=== PATIENT | female | born 1945 | race Caucasian/White ===

== ENCOUNTER 2017-08-10 14:37 | Inpatient (IN) ==
[2017-08-10] MEDS ORDERED: Ondansetron 4 MG/2 ML VIAL IVP PRN (15:52)
[2017-08-10] MEDS ORDERED: Naloxone 0.4 MG/ML INJ IVP PRN (15:52)
[2017-08-10] MEDS ORDERED: Ipratropium/Albuterol Neb 3 ML IH PRN (15:56)
[2017-08-10] MEDS ORDERED: Acetaminophen IV 1,000 MG/100 ML INFUS..BTL IVPB PRN (15:56)
[2017-08-10] MEDS ORDERED: Dextrose Gel 15 GM PO PRN ×2 (15:58)
[2017-08-10] MEDS ORDERED: *HR* Dextrose 50 % in Water (Syg) 50 ML SYRINGE IVP PRN (15:58)
[2017-08-10] MEDS ORDERED: D5% in Water 1,000 ML IVC PRN (15:58)
--- NOTE | 2017-08-10 16:23 | General Surg History&Physical ---
Date of Encounter: 08/10/17 Time of Encounter: 16:20 Assessment and Plan (1) Rectal prolapse Current Visit: No Status: Acute The assessment and plan as outlined above was discussed with the patient and/or family members who expressed understanding and agreement. All questions were answered. (2) COPD (chronic obstructive pulmonary disease) Current Visit: Yes Status: Chronic The assessment and plan as outlined above was discussed with the patient and/or family members who expressed understanding and agreement. All questions were answered. Qualifiers: COPD type: unspecified COPD Qualified Code(s): J44.9 - Chronic obstructive pulmonary disease, unspecified (3) Rheumatoid arthritis Current Visit: Yes Status: Chronic The assessment and plan as outlined above was discussed with the patient and/or family members who expressed understanding and agreement. All questions were answered. Qualifiers: Rheumatoid arthritis location: multiple sites Rheumatoid factor presence: unspecified presence Qualified Code(s): M06.9 - Rheumatoid arthritis, unspecified (4) Crohn's disease Current Visit: Yes Status: Chronic The assessment and plan as outlined above was discussed with the patient and/or family members who expressed understanding and agreement. All questions were answered. Qualifiers: Gastrointestinal tract location: unspecified location Digestive disease complication type: without complication Qualified Code(s): K50.90 - Crohn's disease, unspecified, without complications (5) DVT prophylaxis Current Visit: Yes Status: Acute The assessment and plan as outlined above was discussed with the patient and/or family members who expressed understanding and agreement. All questions were answered. History of Present Illness Chief complaint: Rectal prolapse HPI: Ms. Lemos is a 72 year old female who was seen in the outpatient surgical office for rectal prolapse. A complete history and physical has been completed in [facility]. A copy of history and physical has been placed in the patient's chart at the nurse's station as well as in the medical records folder to be scanned into the patient's chart. Past Med Surg Social Fam HX - Past Medical History Medical history: CHF, COPD, diabetes, RA, thyroid disease, other Psychiatric history: no psych history - Social History Smoking Status: Former smoker Smokeless Tobacco Status: No Alcohol use: none Drug use: none Medications and Allergies 3 Allergy/AdvReac Type Severity Reaction Status Date / Time gabapentin [From Neurontin] AdvReac Headache Verified 08/09/17 17:24 Penicillins AdvReac Vomiting Verified 08/09/17 17:24 Review of Systems All systems PM: A 10-system review of systems was performed and is negative for pertinent findings except as documented above in the HPI. General Surgery Exam Initial Vital Signs Temp Pulse Resp BP Pulse Ox 97.4 F L 70 15 99/65 93 08/10/17 15:52 08/10/17 15:52 08/10/17 15:52 08/10/17 15:52 08/10/17 15:52 Results - Labs All other labs normal.
[2017-08-10] MEDS: *HR* HYDROmorphone (PF) 1 MG/ML SYRINGE IVP PRN ×2 (16:35→21:51)
[2017-08-10] MEDS: 0.9 % Sodium Chloride 1,000 ML IVC SCH (16:35)
[2017-08-10 16:53] LABS: Basophils % 0.5 %; Eosinophils # 0.1 K/mcL (0.0-0.6); Eosinophils % 1.5 %; Hematocrit 37.7 % (35.3-44.9); Hemoglobin 12.1 g/dL (11.5-15.4); Immature Granulocytes % 0.1 % (0-4); Lymphocytes # 2.4 K/mcL (0.6-4.6); Lymphocytes % 29.9 %; Mean Corpuscular HGB Conc 32.1 g/dL (31.6-35.5); Mean Corpuscular Hemoglobin 31.9 pg (28.0-33.3); Mean Corpuscular Volume 99.5 fL (83.0-100.0); Mean Platelet Volume 11.5 fL (9.4-12.4); Monocytes # 0.5 K/mcL (0.0-1.3); Monocytes % 6.4 %; Platelet Count 217 K/mcL (140-400); Red Blood Count 3.79 M/mcL (3.82-4.97); Red Cell Distribution Width 13.6 % (11.5-14.5); Segmented Neutrophils % 61.6 %
[2017-08-10 16:58] LABS: INR 1.2; Prothrombin Time 12.6 Seconds (9.4-12.1)
[2017-08-10 17:08] LABS: Alanine Aminotransferase 16 Units/L (0-55); Albumin 3.6 g/dL (3.5-5.0); Albumin/Globulin Ratio 0.8 (1.1-2.2); Alkaline Phosphatase 90 Units/L (38-126); Aspartate Amino Transferase 24 Units/L (5-34); BUN/Creatinine Ratio 14 (6-26); Bilirubin,Total 0.5 mg/dL (0.2-1.2); Blood Urea Nitrogen 11 mg/dL (7-20); Calcium 9.6 mg/dL (8.6-10.8); Carbon Dioxide 29 mEq/L (19-29); Chloride 101 mEq/L (98-109); Globulin 4.3 g/dL (2.4-3.5); Glucose 108 mg/dL (70-99); Osmolality,Calculated 290 (280-300); Potassium 3.5 mEq/L (3.5-4.5); Sodium 140 mEq/L (136-145); Total Protein 7.9 g/dL (6.0-8.3); eGFR For African Americans > 60 (> 60); eGFR For Non-African Americans > 60 (> 60)
[2017-08-10] MEDS: Insulin LISPRO 300 UNITS/3 ML VIAL SQ SCH (17:22)
[2017-08-10] MEDS: *HR* LORazepam 2 MG/ML VIAL IVP PRN (18:29)
[2017-08-11] MEDS: Insulin LISPRO 300 UNITS/3 ML VIAL SQ SCH ×4 (01:19→21:12)
[2017-08-11] MEDS: 0.9 % Sodium Chloride 1,000 ML IVC SCH ×2 (06:08→21:12)
[2017-08-11] MEDS: *HR* HYDROmorphone (PF) 1 MG/ML SYRINGE IVP PRN ×4 (06:10→23:12)
[2017-08-11] MEDS: *HR* LORazepam 2 MG/ML VIAL IVP PRN (07:53)
[2017-08-11] MEDS ORDERED: Levothyroxine Sodium 100 MCG VIAL IVP SCH (09:00)
[2017-08-11] MEDS ORDERED: Pantoprazole 40 MG VIAL IVP SCH (09:00)
--- NOTE | 2017-08-11 12:20 | General Surgery Progress Note ---
Date of Encounter: 08/11/17 Time of Encounter: 10:30 - Assessment and Plan (1) Rectal prolapse Current Visit: No Status: Acute Plan for Robotic assisted LAR with Dr. Velasquez today NPO IV fluids Supportive care and pain control IS every 1 hour while awake PPI therapy daily am labs (2) COPD (chronic obstructive pulmonary disease) Current Visit: Yes Status: Chronic no acute exacerbation duonebs every 6 hours prn IS every 1 hour while awake Supplemental oxygen at night 2L per nasal cannula Qualifiers: COPD type: unspecified COPD Qualified Code(s): J44.9 - Chronic obstructive pulmonary disease, unspecified (3) Rheumatoid arthritis Current Visit: Yes Status: Chronic Qualifiers: Rheumatoid arthritis location: multiple sites Rheumatoid factor presence: unspecified presence Qualified Code(s): M06.9 - Rheumatoid arthritis, unspecified (4) Crohn's disease Current Visit: Yes Status: Chronic Qualifiers: Gastrointestinal tract location: unspecified location Digestive disease complication type: without complication Qualified Code(s): K50.90 - Crohn's disease, unspecified, without complications (5) DVT prophylaxis Current Visit: Yes Status: Acute EPCDs to bilateral lower extremities for DVT prophylaxis Ambulate hallways TID with assistance Subjective Patient reports: no new complaints, still having pain, flatus, bowel movement, afebrile, other (Unable to void last evening and cueto catheter placed) Objective Vital Signs - Last 8 Hours Temp Pulse Resp BP Pulse Ox 08/11/17 11:21 98.7 F 81 16 123/68 97 08/11/17 07:06 98.1 F 91 14 114/73 91 08/11/17 05:44 98.4 F 98 14 103/72 94 Intake and Output 08/10/17 08/11/17 08/11/17 23:59 07:59 15:59 Intake Total 0 / 0 950 / 950 Output Total 1100 / 1100 400 / 400 Balance -1100 / -1100 550 / 550 Intake: IV Fluids 950 / 950 0.9 % Sodium Chloride 1,000 ML 950 / 950 @ 75 mls/hr IVC .[id number] [facility] Rx #:[id number] Oral 0 / 0 0 / 0 Output: Urine 550 / 550 Urethral (Cueto) 550 / 550 Catheter 550 / 550 400 / 400 Other: Meal NPO Stool Size Moderate Moderate Smear Stool Consistency liquid liquid liquid Stool Color Brown Green Yellow # Bowel Movements 1 # Bowel Movement Diapers 1 1 1 Weight 69.127 kg Blood Glucose* 96 108 105 Patient Weight 08/11/17 23:59 Weight 69.127 kg - General physical appearance well developed, well nourished, no distress - Eyes normal ocular movement - ENT normal mucosa, atraumatic, normocephalic - Neck Neck exam: trachea midline - Respiratory normal respiratory effort, clear to auscultation - Cardiovascular Cardiovascular exam: Present: RRR - Abdomen Abdomen: Present: bowel sounds present, soft, non tender - Genitourinary other (cueto catheter to SD with clear yellow urine noted) - Rectum other (Rectal prolapse reduced at this time) - Neurologic CN 2-12 grossly intact - Musculoskeletal other (moderate deconditioning ) - Psychiatric oriented to time, oriented to person, oriented to place, speech is normal, memory intact - Labs 08/10/17 16:20 08/10/17 16:20 Diabetes panel 08/10/17 Range/Units 16:20 Sodium 140 (136-145) mEq/L Potassium 3.5 (3.5-4.5) mEq/L Chloride 101 (98-109) mEq/L Carbon Dioxide 29 (19-29) mEq/L BUN 11 (7-20) mg/dL Creatinine 0.79 (0.57-1.11) mg/dL Glucose 108 H (70-99) mg/dL Calcium 9.6 (8.6-10.8) mg/dL AST 24 (5-34) Units/L ALT 16 (0-55) Units/L Alkaline Phosphatase 90 (38-126) Units/L Albumin 3.6 (3.5-5.0) g/dL Calcium panel 08/10/17 Range/Units 16:20 Calcium 9.6 (8.6-10.8) mg/dL Albumin 3.6 (3.5-5.0) g/dL Pituitary panel 08/10/17 Range/Units 16:20 Sodium 140 (136-145) mEq/L Potassium 3.5 (3.5-4.5) mEq/L Chloride 101 (98-109) mEq/L Carbon Dioxide 29 (19-29) mEq/L BUN 11 (7-20) mg/dL Creatinine 0.79 (0.57-1.11) mg/dL Glucose 108 H (70-99) mg/dL Calcium 9.6 (8.6-10.8) mg/dL Adrenal panel 08/10/17 Range/Units 16:20 Sodium 140 (136-145) mEq/L Potassium 3.5 (3.5-4.5) mEq/L Chloride 101 (98-109) mEq/L Carbon Dioxide 29 (19-29) mEq/L BUN 11 (7-20) mg/dL Creatinine 0.79 (0.57-1.11) mg/dL Glucose 108 H (70-99) mg/dL Calcium 9.6 (8.6-10.8) mg/dL Total Bilirubin 0.5 (0.2-1.2) mg/dL AST 24 (5-34) Units/L ALT 16 (0-55) Units/L Alkaline Phosphatase 90 (38-126) Units/L Albumin 3.6 (3.5-5.0) g/dL Consult Discharge Plan - Plan Referrals: NONE,PCP [Primary Care Provider] - Jose Luis Dunaway CNP [Family Provider] - - Attending Attestation For this encounter, I have reviewed the MECHANISM INSPECTOR or PA documentation, treatment plan, and medical decision making; and I have had face to face time with this patient.
--- NOTE | 2017-08-11 14:01 | Anesthesia Evaluation PreOp ---
<Ruby Esteves - Last Filed: 08/11/17 13:59> Date of Encounter: 08/11/17 - Past History Planned Operation: ascending colon resection for rectal prolapse Cardiac History: CHF (? no documentation found), HTN, Hyperlipidemia Pulmonary History: COPD TRUCK LEASING MANAGER History: Denies Any Significant HX Other Medical History: GERD, Other (rheumatoid arthritis) Anesthesia History: No Prior Anesthetic Complications, Past Anesthesia Alcohol Use: none Drug use: none Medications and Allergies ALPRAZolam [Xanax 1 MG Tablet] 1 mg PO BID 08/10/17 [History] Acetaminophen [Tylenol Arthritis] 650 mg PO Q8H PRN 08/10/17 [History] Alendronate Sodium [Alendronate Sodium] 70 mg PO QWEEK 08/10/17 [History] Duloxetine HCl [Cymbalta] 60 mg PO DAILY 08/10/17 [History] Ezetimibe [Ezetimibe] 10 mg PO DAILY 08/10/17 [History] Folic Acid 1 mg PO DAILY 08/10/17 [History] Furosemide [Lasix] 20 mg PO BID PRN 08/10/17 [History] GlipiZIDE XL (24 HR) [Glucotrol XL] 2.5 mg PO DAILY PRN 08/10/17 [History] Levothyroxine Sodium [Levothyroxine Sodium] 137 mcg PO QDPC 08/10/17 [History] Loratadine [Claritin] 10 mg PO DAILY 08/10/17 [History] Morphine Sulfate SR (12 HR) [MS Contin] 30 mg PO TID 08/10/17 [History] Omeprazole [PriLOSEC] 20 mg PO QDPC 08/10/17 [History] Oxycodone HCl [Oxycodone HCl] 0.5 tab PO BID 08/10/17 [History] Potassium Chloride [Potassium Chloride] 10 meq PO BID PRN 08/10/17 [History] Umeclidinium Elmo [Incruse Ellipta] 62.5 mcg IH DAILY 08/10/17 [History] 3 Allergy/AdvReac Type Severity Reaction Status Date / Time baclofen AdvReac Headache Verified 08/10/17 19:26 clonazepam AdvReac See Verified 08/10/17 19:26 Comments Cyclobenzaprine AdvReac Gastrointestinal Verified 08/10/17 19:26 [From Flexeril] Upset gabapentin [From Neurontin] AdvReac Headache Verified 08/10/17 19:26 ibuprofen [From Motrin] AdvReac Chest Pain Verified 08/10/17 19:26 meloxicam [From Mobic] AdvReac See Verified 08/10/17 19:26 Comments methocarbamol AdvReac Gastrointestinal Verified 08/10/17 19:26 Upset methotrexate AdvReac See Verified 08/10/17 19:26 Comments naproxen [From Naprosyn] AdvReac See Verified 08/10/17 19:26 Comments Penicillins AdvReac Vomiting Verified 08/10/17 19:26 pregabalin [From Lyrica] AdvReac Headache Verified 08/10/17 19:26 Sulindac AdvReac Gastrointestinal Verified 08/10/17 19:26 Upset Tizanidine [From Zanaflex] AdvReac Headache Verified 08/10/17 19:26 - Meds/Allergy Pre-op Review Medications Reviewed: Yes Allergies Reviewed: Yes Anesthesia Results - Labs 08/10/17 16:20 08/10/17 16:20 Anesthesia Exam Selected Entries 08/11/17 11:21 Temperature 98.7 F Pulse Rate 81 Respiratory Rate 16 Blood Pressure 123/68 O2 Sat by Pulse Oximetry 97 Weight: 69 kg NPO (# of Hours): over 8 hours <Minh Santiago - Last Filed: 08/11/17 14:56> Date of Encounter: 08/11/17 Time of Encounter: 14:54 - Past History Other Medical History: Other Anesthesia Results - Labs 08/10/17 16:20 08/10/17 16:20 Anesthesia Exam - HEENT Pupil (Motor): EOMI Mallampati: II Teeth: Edentulous Oral Opening: Greater than 3 - TRUCK LEASING MANAGER LOC: Oriented TRUCK LEASING MANAGER Motor: Normal RUE, Normal LUE, Normal RLE, Normal LLE, Normal Face TRUCK LEASING MANAGER Sensory: Normal: RUE, LUE, RLE, LLE, Face - Cardiac Rhythm: Regular Murmur: None - Pulmonary Breath Sounds: bilateral Clear Respiratory Effort: Symmetrical - Additional Findings very limited ROM of c-spine Anesthesia Assess/Plan ASA Score: 4 Modified Valentina Scale for Level of Consciousness: Cooperative, oriented, and tranquil Anesthetic Plan: General Monitoring Plan: Standard Monitors Recovery Plan: PACU (discussed risk of GA, agrees to proceed)
--- NOTE | 2017-08-11 14:20 | Event Note ---
Date of Encounter: 08/11/17 Time of Encounter: 14:00 Patient assessed and reviewed case with Dr. Velasquez. Will plan for Robotic assisted low anterior resection today with Dr. Velasquez for rectal prolapse. Consent complete. Cancel Air contrast barium enema.
[2017-08-11] MEDS ORDERED: Dexamethasone 4 MG/ML VIAL ONE ×2 (15:11)
[2017-08-11] MEDS ORDERED: Lidocaine -MPF 2% 2 ML VIAL ONE (15:11)
[2017-08-11] MEDS ORDERED: *HR* Propofol 200 MG/20 ML VIAL IVP ONE (15:11)
[2017-08-11] MEDS ORDERED: *HR* Succinylcholine 200 MG/10 ML VIAL IVP ONE (15:11)
[2017-08-11] MEDS ORDERED: Neostigmine Methylsulfate 3 MG/3 ML SYRINGE ONE (15:11)
[2017-08-11] MEDS ORDERED: Ondansetron 4 MG/2 ML VIAL ONE ×2 (15:11)
[2017-08-11] MEDS ORDERED: *HR* Rocuronium Bromide 50 MG/5 ML VIAL ONE (15:11)
[2017-08-11] MEDS ORDERED: *HR* FentaNYL (PF) 100 MCG/2 ML VIAL ONE ×2 (15:13→18:18)
[2017-08-11] MEDS ORDERED: CefOXitin 2,000 MG VIAL ONE (16:24)
[2017-08-11] MEDS ORDERED: *HR* Morphine 10 MG/ML VIAL ONE (16:58)
[2017-08-11] MEDS ORDERED: *HR* HYDROmorphone (PF) 1 MG/ML SYRINGE IVP PRN ×2 (17:23→20:04)
[2017-08-11] MEDS ORDERED: Ondansetron 4 MG/2 ML VIAL IVP PRN ×3 (17:23→20:04)
[2017-08-11] MEDS ORDERED: Naloxone 0.4 MG/ML INJ IVP PRN ×3 (17:23→20:04)
--- NOTE | 2017-08-11 18:44 | Operative Note ---
Date of procedure: 08/11/17 Pre-op diagnosis: rectal prolapse Post-op diagnosis: same Procedure: Robotic low anterior resection Anesthesia: LEIDYA Surgeon: Evin Velasquez Estimated blood loss (cc): 15 Specimen: rectosigmoid colon Condition: stable Disposition: floor Procedure in Detail: After informed consent, patient taken operating room placed supine position. After adequate sedation anesthesia patient was placed in a lithotomy position. After proper timeout a 12 mm cannula site was placed right superior to the umbilicus. Pneumoperitoneum was greater. A 13 mm cannula was placed in right lower quadrant. 5 mm camera was placed in the right upper quadrant. An 8 mm cannula was placed in subxiphoid region followed by another 8 mm in the left lower quadrant. Patient was placed in a headdown position. The robot was docked over the patient's left hip. Small bowel swept out of the pelvis. Rectosigmoid colon was then grasped and retracted cephalad. The peritoneum was then scored level of the sacral promontory. The left ureter was identified and kept on harm's way. The inferior mesenteric artery was then taken with a vessel sealer. The lateral rectosigmoid stalks were taken down the vessel sealer. The dissection was carried out down to approximate 4 cm above the pelvic floor. Rectosigmoid colon was dissected free from the retro-pubic tubercle region. Once it was freed a 45 mm robotic Endo staplers fired across the rectum. Once it was retracted and area was demarcated on the sigmoid colon for transection. Indocyanine green was infused and we had excellent perfusion. A counterincision was made in the suprapubic region. Dissection carried down the anterior rectus sheath. The rectus muscles were then divided in the midline with Mariza clamp. Once they were split the rectosigmoid colon was delivered. Naseem bowel clamps are used to place across the colon proximal and distal and transected. Allis clamps are placed on the bowel and then a pursestring suture device placed on the colon. 3-0 Prolene suture was passed. A pursestring sutures and created and a 33 mm EEA anvil was placed. Suture was tied and secured. Colon was then placed back in the pelvis. The stapler was passed through the anal canal and to the rectal stump and then the spear was placed through the staple line. The anvil was then connected secured and fired. There were 2 excellent donuts. A leak test revealed no leak. At that point the procedure was terminated. All incisions are closed with 0 Vicryl suture and 4-0 Vicryl suture. Marcaine was inserted in the Pfannenstiel incision. She tolerated the procedure well.
[2017-08-11] MEDS ORDERED: *HR* HYDROmorphone 20 MG/20 ML PCA IVC PRN (18:47)
[2017-08-11] MEDS ORDERED: Albuterol 2.5 MG/3 ML NEBULIZER IH ONE (19:16)
[2017-08-11] MEDS ORDERED: Albuterol 2.5 MG/3 ML NEBULIZER ONE (19:17)
[2017-08-11] MEDS ORDERED: Ipratropium/Albuterol Neb 3 ML IH PRN (20:04)
[2017-08-11] MEDS ORDERED: D5% in Water 1,000 ML IVC PRN (20:04)
[2017-08-11] MEDS ORDERED: *HR* Dextrose 50 % in Water (Syg) 50 ML SYRINGE IVP PRN (20:04)
[2017-08-11] MEDS ORDERED: Dextrose Gel 15 GM PO PRN ×2 (20:04)
[2017-08-11] MEDS ORDERED: *HR* LORazepam 2 MG/ML VIAL IVP PRN (20:04)
[2017-08-11] MEDS ORDERED: Acetaminophen IV 1,000 MG/100 ML INFUS..BTL IVPB PRN (20:04)
--- NOTE | 2017-08-11 20:22 | Anesthesia Evaluation Post Op ---
Date of Encounter: 08/11/17 Time of Encounter: 19:45 - Vital Signs Vital Signs: Vital Signs/O2 Sat, Most Current Temp Pulse Resp BP Pulse Ox 98.0 F 99 18 144/89 92 08/11/17 19:36 08/11/17 19:46 08/11/17 19:46 08/11/17 19:46 08/11/17 19:46 - Lungs Lungs: Clear Ascult./Percussion - Airway Airway: Non-obstructed - Cardiovascular Regular Rate - Mental Status Mental Status: Alert & Oriented, Answers Appropriately - Pain Pain Scale: 5 Pain Scale used: Numeric (1 - 10) - Nausea Vomiting Nausea Vomiting: Not Present - Hydration Hydration: Ice chips, Powers catheter - Discharge PostOp Status: Transfer Patient to floor
[2017-08-12] MEDS: Insulin LISPRO 300 UNITS/3 ML VIAL SQ SCH ×5 (00:45→20:18)
[2017-08-12] MEDS: *HR* Heparin 5,000 UNIT/ML VIAL SQ SCH ×3 (00:47→20:25)
[2017-08-12] MEDS: *HR* HYDROmorphone (PF) 1 MG/ML SYRINGE IVP PRN ×5 (02:02→23:29)
[2017-08-12] MEDS: 0.9 % Sodium Chloride 1,000 ML IVC SCH ×2 (02:52→13:22)
[2017-08-12] MEDS ORDERED: Pantoprazole 40 MG VIAL IVP SCH (09:00)
[2017-08-12] MEDS ORDERED: Levothyroxine Sodium 100 MCG VIAL IVP SCH (09:00)
[2017-08-12] MEDS ORDERED: 0.9 % Sodium Chloride 1,000 ML IVC ONE (11:29)
--- NOTE | 2017-08-12 11:56 | General Surgery Progress Note ---
Date of Encounter: 08/12/17 Time of Encounter: 11:30 - Assessment and Plan (1) Rectal prolapse Current Visit: No Status: Acute POD #1 Robotic low anterior resection with Dr. Velasquez Clear liquid diet with diabetic modification IV fluids- 75ml/hour 1000ml fluid bolus now Supportive care and pain control IS every 1 hour while awake PPI therapy daily am labs PT/OT consult for mobilization (2) COPD (chronic obstructive pulmonary disease) Current Visit: Yes Status: Chronic no acute exacerbation duonebs every 6 hours prn IS every 1 hour while awake Supplemental oxygen at night 2L per nasal cannula Qualifiers: COPD type: unspecified COPD Qualified Code(s): J44.9 - Chronic obstructive pulmonary disease, unspecified (3) Rheumatoid arthritis Current Visit: Yes Status: Chronic Qualifiers: Rheumatoid arthritis location: multiple sites Rheumatoid factor presence: unspecified presence Qualified Code(s): M06.9 - Rheumatoid arthritis, unspecified (4) Crohn's disease Current Visit: Yes Status: Chronic Qualifiers: Gastrointestinal tract location: unspecified location Digestive disease complication type: without complication Qualified Code(s): K50.90 - Crohn's disease, unspecified, without complications (5) DVT prophylaxis Current Visit: Yes Status: Acute EPCDs to bilateral lower extremities for DVT prophylaxis Ambulate hallways TID with assistance Heparin 5,000 units SQ twice daily for DVT prophylaxis Subjective Patient reports: no new complaints, still having pain (post-surgical discomfort) , tolerating liquids well, no flatus, no bowel movement, afebrile, other ( occasional belching noted) Objective Vital Signs - Last 8 Hours Temp Pulse Resp BP Pulse Ox 08/12/17 07:18 98.1 F 102 16 95/61 90 08/12/17 04:11 98.2 F 109 16 102/70 89 Intake and Output 08/11/17 08/12/17 08/12/17 23:59 07:59 15:59 Intake Total 1000 / 1000 600 / 600 Output Total 400 / 400 Balance - 600 / 600 600 / 600 Intake: IV Fluids 1000 / 1000 600 / 600 0.9 % Sodium Chloride 1,000 ML 1000 / 1000 600 / 600 @ 75 mls/hr IVC .[id number] [facility] Rx #:[id number] Oral 0 / 0 Output: Estimated Blood Loss Catheter 400 / 400 Other: Blood Glucose* 138 - General physical appearance well nourished, no distress - Eyes normal ocular movement - ENT normal mucosa, atraumatic, normocephalic - Neck Neck exam: trachea midline - Respiratory normal respiratory effort, clear to auscultation, other (diminished bibasilar bases) - Cardiovascular Cardiovascular exam: Present: tachycardia - Abdomen Abdomen: Present: bowel sounds present, soft, tender (Expected postoperative tenderness) - Incision Incision: Present: clean and dry, intact - Genitourinary other (Powers catheter to straight drain with clear, yellow urine) - Neurologic CN 2-12 grossly intact - Musculoskeletal other (moderate deconditioning- rheumatoid arthritis) - Psychiatric oriented to time, oriented to person, oriented to place, speech is normal, memory intact - Labs 08/10/17 16:20 08/10/17 16:20 - VTE Documentation of Mechanical Device: Intermittent pneumatic compression device Consult Discharge Plan - Plan Referrals: Jose Luis Dunaway CNP [Family Provider] - - Attending Attestation For this encounter, I have reviewed the AEROSPACE MECHANIC or PA documentation, treatment plan, and medical decision making; and I have had face to face time with this patient.
[2017-08-12] MEDS: ALPRAZolam 1 MG TABLET PO SCH ×3 (13:24→23:29)
[2017-08-12] MEDS: Ketorolac 15 MG/ML VIAL IVP SCH ×3 (15:06→23:29)
--- NOTE | 2017-08-12 16:57 | Electrocardiograph Report ---
[place] [id number] Test Date: 2017-08-11 Pat Name: Ada Lemos Department: 115 Room: 3A37 Gender: F [facility] Chief Financial Officer: CHIDI : 1945 Requested By: Evin Velasquez Order Number: [id number] Reading MD: Kendrick Fenton DO Measurements Intervals [place] Rate: 97 P: 58 WI: 136 QRS: 36 QRSD: 86 T: 42 QT: 365 QTc: 420 Interpretive Statements Sinus rhythm Electronically Signed On 08-12-2017 16:56:13 EST by Kendrick Fenton DO
[2017-08-13] MEDS: Ketorolac 15 MG/ML VIAL IVP SCH ×4 (01:02→19:47)
[2017-08-13] MEDS: *HR* HYDROmorphone (PF) 1 MG/ML SYRINGE IVP PRN ×2 (06:06→23:19)
[2017-08-13] MEDS: 0.9 % Sodium Chloride 1,000 ML IVC SCH (06:25)
[2017-08-13 06:35] LABS: BUN/Creatinine Ratio 10 (6-26); Blood Urea Nitrogen 6 mg/dL (7-20); Calcium 8.2 mg/dL (8.6-10.8); Carbon Dioxide 22 mEq/L (19-29); Chloride 107 mEq/L (98-109); Glucose 116 mg/dL (70-99); Osmolality,Calculated 285 (280-300); Sodium 138 mEq/L (136-145); eGFR For African Americans > 60 (> 60); eGFR For Non-African Americans > 60 (> 60)
[2017-08-13 06:40] LABS: Basophils % 0.2 %; Eosinophils # 0.1 K/mcL (0.0-0.6); Eosinophils % 0.6 %; Hematocrit 30.1 % (35.3-44.9); Hemoglobin 9.5 g/dL (11.5-15.4); Immature Granulocytes % 0.4 % (0-4); Lymphocytes # 2.4 K/mcL (0.6-4.6); Lymphocytes % 23.2 %; Mean Corpuscular HGB Conc 31.6 g/dL (31.6-35.5); Mean Corpuscular Hemoglobin 31.1 pg (28.0-33.3); Mean Corpuscular Volume 98.7 fL (83.0-100.0); Mean Platelet Volume 11.7 fL (9.4-12.4); Monocytes # 0.7 K/mcL (0.0-1.3); Monocytes % 6.5 %; Neutrophils # 7.1 K/mcL (1.6-8.9); Platelet Count 239 K/mcL (140-400); Red Blood Count 3.05 M/mcL (3.82-4.97); Red Cell Distribution Width 13.9 % (11.5-14.5); Segmented Neutrophils % 69.1 %
--- NOTE | 2017-08-13 09:01 | General Surgery Progress Note ---
Date of Encounter: 08/13/17 Time of Encounter: 08:30 - Assessment and Plan (1) Rectal prolapse Current Visit: No Status: Acute The patient is doing quite well after low anterior resection. We will advance her diet to full liquids. (2) Hypokalemia Current Visit: Yes Status: Acute The patient's potassium is 3.0 today. We will replace this with 40 mEq IV piggyback over 4 hours Subjective Narrative: The patient feels well and is having very little pain. She denies shakes chills or fever. She is passing gas from below. High-volume flatus. She had a small amount of rectal bleeding. She is tolerating her clear liquids and will like to move on to full liquids. Incisions are clean and dry. Objective Vital Signs - Last 8 Hours Temp Pulse Resp BP Pulse Ox 08/13/17 04:59 98.2 F 103 18 117/72 92 Intake and Output 08/12/17 08/13/17 08/13/17 23:59 07:59 15:59 Intake Total 1000 / 1000 Output Total 0 / 0 1000 / 1000 Balance 0 / 0 0 / 0 Intake: IV Fluids 1000 / 1000 0.9 % Sodium Chloride 1,000 ML 1000 / 1000 @ 75 mls/hr IVC .[id number] [facility] Rx #:[id number] Oral 0 / 0 Output: Urine 0 / 0 1000 / 1000 Other: Weight 69.7 kg Blood Glucose* 140 Patient Weight 08/13/17 23:59 Weight 69.7 kg - General physical appearance well developed, well nourished, no pain - Respiratory normal expansion, normal respiratory effort, clear to percussion, clear to auscultation - Cardiovascular Cardiovascular exam: Present: RRR, no murmurs/rubs/gallops - Abdomen Abdomen: Present: bowel sounds present, soft, non tender - Incision Incision: Present: clean and dry - Neurologic normal coordination, normal sensation - Psychiatric oriented to time, oriented to person, oriented to place, speech is normal, memory intact - Labs 08/13/17 05:57 08/13/17 05:57 Diabetes panel 08/13/17 Range/Units 05:57 Sodium 138 (136-145) mEq/L Potassium 3.0 L (3.5-4.5) mEq/L Chloride 107 (98-109) mEq/L Carbon Dioxide 22 (19-29) mEq/L BUN 6 L (7-20) mg/dL Creatinine 0.61 (0.57-1.11) mg/dL Glucose 116 H (70-99) mg/dL Calcium 8.2 L (8.6-10.8) mg/dL Calcium panel 08/13/17 Range/Units 05:57 Calcium 8.2 L (8.6-10.8) mg/dL Pituitary panel 08/13/17 Range/Units 05:57 Sodium 138 (136-145) mEq/L Potassium 3.0 L (3.5-4.5) mEq/L Chloride 107 (98-109) mEq/L Carbon Dioxide 22 (19-29) mEq/L BUN 6 L (7-20) mg/dL Creatinine 0.61 (0.57-1.11) mg/dL Glucose 116 H (70-99) mg/dL Calcium 8.2 L (8.6-10.8) mg/dL Adrenal panel 08/13/17 Range/Units 05:57 Sodium 138 (136-145) mEq/L Potassium 3.0 L (3.5-4.5) mEq/L Chloride 107 (98-109) mEq/L Carbon Dioxide 22 (19-29) mEq/L BUN 6 L (7-20) mg/dL Creatinine 0.61 (0.57-1.11) mg/dL Glucose 116 H (70-99) mg/dL Calcium 8.2 L (8.6-10.8) mg/dL - VTE Documentation of Mechanical Device: Intermittent pneumatic compression device Consult Discharge Plan - Plan Referrals: Jose Luis Dunaway, [place] [Family Provider] -
[2017-08-13] MEDS ORDERED: Potassium Chloride 40 MEQ, Lidocaine 1% 2 ML in D5% in Water 500 ML IVPB ONE (09:03)
[2017-08-13] MEDS: ALPRAZolam 1 MG TABLET PO SCH ×2 (09:58→21:59)
[2017-08-13] MEDS: *HR* Heparin 5,000 UNIT/ML VIAL SQ SCH ×2 (09:58→21:57)
[2017-08-13] MEDS: Insulin LISPRO 300 UNITS/3 ML VIAL SQ SCH ×3 (09:59→17:13)
[2017-08-14] MEDS: *HR* HYDROmorphone (PF) 1 MG/ML SYRINGE IVP PRN ×5 (02:24→23:40)
[2017-08-14] MEDS: 0.9 % Sodium Chloride 1,000 ML IVC SCH ×2 (03:42→19:11)
[2017-08-14 05:21] LABS: BUN/Creatinine Ratio 11 (6-26); Blood Urea Nitrogen 6 mg/dL (7-20); Calcium 8.2 mg/dL (8.6-10.8); Chloride 109 mEq/L (98-109); Glucose 107 mg/dL (70-99); Osmolality,Calculated 286 (280-300); Sodium 139 mEq/L (136-145); eGFR For African Americans > 60 (> 60); eGFR For Non-African Americans > 60 (> 60)
[2017-08-14 06:17] LABS: Carbon Dioxide 26 mEq/L (19-29)
--- NOTE | 2017-08-14 09:40 | General Surgery Progress Note ---
Date of Encounter: 08/14/17 Time of Encounter: 09:10 - Assessment and Plan (1) Rectal prolapse Current Visit: No Status: Acute The patient is doing quite well after low anterior resection. We will advance her diet to full liquids. 08/14/2017. The patient is doing quite well after low anterior resection with colon. She is tolerating full liquid diet. She is passing a high amount of flatus. We will maintain full liquid diet today and increase ambulation. (2) Hypokalemia Current Visit: Yes Status: Acute The patient's potassium is 3.0 today. We will replace this with 40 mEq IV piggyback over 4 hours 08/14/2017. The patient has persistent hypokalemia at 3.0. We will plan an additional 40 mEq of potassium with follow-up BMP Subjective Narrative: The patient is having a high degree of flatus. She has excellent pain control. She is tolerating full liquids. I will increase her physical activity today. She continues to have hypokalemia with a potassium of 3.0. Objective Vital Signs - Last 8 Hours Temp Pulse Resp BP Pulse Ox 08/14/17 07:54 97.6 F 82 16 103/65 95 08/14/17 03:37 97.6 F 85 15 108/68 95 Intake and Output 08/13/17 08/14/17 08/14/17 23:59 07:59 15:59 Intake Total 1240 / 1240 0 / 0 Output Total 0 / 0 400 / 400 Balance 1240 / 1240 -400 / -400 Intake: IV Fluids 1000 / 1000 0.9 % Sodium Chloride 1,000 ML 1000 / 1000 @ 75 mls/hr IVC .[id number] [facility] Rx #:[id number] Oral 240 / 240 0 / 0 Output: Urine 0 / 0 400 / 400 Other: Meal Dinner Percent of Meal Consumed 50% Stool Size Small Stool Consistency loose Stool Color Brown Yellow Weight 69.9 kg Patient Weight 08/14/17 23:59 Weight 69.9 kg - General physical appearance well developed, well nourished, no pain - Respiratory normal expansion, normal respiratory effort, clear to percussion, clear to auscultation - Cardiovascular Cardiovascular exam: Present: RRR, no murmurs/rubs/gallops - Abdomen Abdomen: Present: bowel sounds present, soft, non tender - Incision Incision: Present: clean and dry - Neurologic normal coordination, normal sensation - Psychiatric oriented to time, oriented to person, oriented to place, speech is normal, memory intact - Labs 08/13/17 05:57 08/14/17 04:18 Diabetes panel 08/14/17 Range/Units 04:18 Sodium 139 (136-145) mEq/L Potassium 3.0 L (3.5-4.5) mEq/L Chloride 109 (98-109) mEq/L Carbon Dioxide 26 (19-29) mEq/L BUN 6 L (7-20) mg/dL Creatinine 0.57 (0.57-1.11) mg/dL Glucose 107 H (70-99) mg/dL Calcium 8.2 L (8.6-10.8) mg/dL Calcium panel 08/14/17 Range/Units 04:18 Calcium 8.2 L (8.6-10.8) mg/dL Pituitary panel 08/14/17 Range/Units 04:18 Sodium 139 (136-145) mEq/L Potassium 3.0 L (3.5-4.5) mEq/L Chloride 109 (98-109) mEq/L Carbon Dioxide 26 (19-29) mEq/L BUN 6 L (7-20) mg/dL Creatinine 0.57 (0.57-1.11) mg/dL Glucose 107 H (70-99) mg/dL Calcium 8.2 L (8.6-10.8) mg/dL Adrenal panel 08/14/17 Range/Units 04:18 Sodium 139 (136-145) mEq/L Potassium 3.0 L (3.5-4.5) mEq/L Chloride 109 (98-109) mEq/L Carbon Dioxide 26 (19-29) mEq/L BUN 6 L (7-20) mg/dL Creatinine 0.57 (0.57-1.11) mg/dL Glucose 107 H (70-99) mg/dL Calcium 8.2 L (8.6-10.8) mg/dL - VTE Documentation of Mechanical Device: Intermittent pneumatic compression device Consult Discharge Plan - Plan Referrals: Jose Luis Dunaway, [place] [Family Provider] -
[2017-08-14] MEDS ORDERED: Potassium Chloride 40 MEQ, Lidocaine 1% 2 ML in D5% in Water 500 ML IVPB ONE (09:41)
[2017-08-14] MEDS: ALPRAZolam 1 MG TABLET PO SCH ×2 (10:08→23:35)
[2017-08-14] MEDS: Ketorolac 15 MG/ML VIAL IVP SCH ×3 (10:08→17:13)
[2017-08-14] MEDS: *HR* Heparin 5,000 UNIT/ML VIAL SQ SCH ×2 (10:09→20:00)
[2017-08-14] MEDS: Insulin LISPRO 300 UNITS/3 ML VIAL SQ SCH ×5 (12:52→20:05)
[2017-08-15] MEDS: Ketorolac 15 MG/ML VIAL IVP SCH ×3 (00:16→14:01)
[2017-08-15 05:53] LABS: BUN/Creatinine Ratio 8 (6-26); Calcium 8.3 mg/dL (8.6-10.8); Carbon Dioxide 23 mEq/L (19-29); Chloride 108 mEq/L (98-109); Glucose 102 mg/dL (70-99); Osmolality,Calculated 289 (280-300); Potassium 3.3 mEq/L (3.5-4.5); Sodium 141 mEq/L (136-145); eGFR For African Americans > 60 (> 60); eGFR For Non-African Americans > 60 (> 60)
[2017-08-15 05:55] LABS: Blood Urea Nitrogen 4 mg/dL (7-20)
[2017-08-15] MEDS: Insulin LISPRO 300 UNITS/3 ML VIAL SQ SCH ×2 (08:36→14:01)
[2017-08-15] MEDS: 0.9 % Sodium Chloride 1,000 ML IVC SCH (08:49)
[2017-08-15] MEDS: *HR* Heparin 5,000 UNIT/ML VIAL SQ SCH (08:52)
[2017-08-15] MEDS: ALPRAZolam 1 MG TABLET PO SCH (08:56)
[2017-08-15 11:55] LABS: Basophils % 0.2 %; Eosinophils # 0.2 K/mcL (0.0-0.6); Hematocrit 32.6 % (35.3-44.9); Hemoglobin 10.6 g/dL (11.5-15.4); Immature Granulocytes % 0.4 % (0-4); Lymphocytes # 2.1 K/mcL (0.6-4.6); Lymphocytes % 25.5 %; Mean Corpuscular HGB Conc 32.5 g/dL (31.6-35.5); Mean Corpuscular Hemoglobin 31.6 pg (28.0-33.3); Mean Corpuscular Volume 97.3 fL (83.0-100.0); Mean Platelet Volume 11.8 fL (9.4-12.4); Monocytes # 0.6 K/mcL (0.0-1.3); Monocytes % 7.4 %; Neutrophils # 5.3 K/mcL (1.6-8.9); Platelet Count 322 K/mcL (140-400); Red Blood Count 3.35 M/mcL (3.82-4.97); Red Cell Distribution Width 13.5 % (11.5-14.5); Segmented Neutrophils % 64.5 %
[2017-08-15] MEDS ORDERED: Acetaminophen 325 MG TABLET PO PRN (14:04)
[2017-08-15] MEDS ORDERED: Ibuprofen 800 MG TABLET PO PRN (14:05)
[2017-08-15] MEDS ORDERED: *HR* OxyCODONE/APAP 5/325 TABLET PO PRN (14:06)
[2017-08-15] MEDS ORDERED: *HR* HYDROmorphone (PF) 1 MG/ML SYRINGE IVP PRN (14:07)
--- NOTE | 2017-08-15 14:12 | Discharge Summary ---
Date of Encounter: 08/15/17 Time of Encounter: 14:00 - Discharge Diagnosis (1) Rectal prolapse Priority: Primary Status: Resolved (2) COPD (chronic obstructive pulmonary disease) Priority: Secondary Status: Chronic Qualifiers: COPD type: unspecified COPD Qualified Code(s): J44.9 - Chronic obstructive pulmonary disease, unspecified (3) Rheumatoid arthritis Priority: Secondary Status: Chronic Qualifiers: Rheumatoid arthritis location: multiple sites Rheumatoid factor presence: unspecified presence Qualified Code(s): M06.9 - Rheumatoid arthritis, unspecified (4) Crohn's disease Priority: Secondary Status: Chronic Qualifiers: Gastrointestinal tract location: unspecified location Digestive disease complication type: without complication Qualified Code(s): K50.90 - Crohn's disease, unspecified, without complications (5) Diarrhea Priority: Secondary Status: Acute Qualifiers: Diarrhea type: functional diarrhea Qualified Code(s): K59.1 - Functional diarrhea - Discharge Medications Prescriptions: Ondansetron ODT [Zofran ODT] 4 mg SL Q6HR PRN #30 tab.rapdis PRN Reason: Nausea Ibuprofen [Motrin] 800 mg PO Q8HR PRN #40 tablet PRN Reason: Pain Commode - Three In One [THREE IN ONE COMMODE] 1 each .ROUTE PRN #1 each Loperamide [Imodium] 2 mg PO Q2H PRN #60 capsule PRN Reason: Diarrhea Psyllium Husk/Aspartame [Metamucil Fiber Singles Packet] 3.4 gm PO DAILY #30 powd.pack Home Medications: ALPRAZolam [Xanax 1 MG Tablet] 1 mg PO BID 08/10/17 [History] Acetaminophen [Tylenol Arthritis] 650 mg PO Q8H PRN 08/10/17 [History] Alendronate Sodium 70 mg PO QWEEK 08/10/17 [History] Duloxetine HCl [Cymbalta] 60 mg PO DAILY 08/10/17 [History] Ezetimibe 10 mg PO DAILY 08/10/17 [History] Folic Acid 1 mg PO DAILY 08/10/17 [History] Furosemide [Lasix] 20 mg PO BID PRN 08/10/17 [History] GlipiZIDE XL (24 HR) [Glucotrol XL] 2.5 mg PO DAILY PRN 08/10/17 [History] Levothyroxine Sodium 137 mcg PO QDPC 08/10/17 [History] Loratadine [Claritin] 10 mg PO DAILY 08/10/17 [History] Morphine Sulfate SR (12 HR) [MS Contin] 30 mg PO TID 08/10/17 [History] Omeprazole [PriLOSEC] 20 mg PO QDPC 08/10/17 [History] Oxycodone HCl 0.5 tab PO BID 08/10/17 [History] Potassium Chloride 10 meq PO BID PRN 08/10/17 [History] Umeclidinium [place] [Incruse Ellipta] 62.5 mcg IH DAILY 08/10/17 [History] Commode - Three In One [THREE IN ONE COMMODE] 1 each .ROUTE PRN #1 each [Rx] Ibuprofen [Motrin] 800 mg PO Q8HR PRN #40 tablet 08/15/17 [Rx] Loperamide [Imodium] 2 mg PO Q2H PRN #60 capsule 08/15/17 [Rx] Ondansetron ODT [Zofran ODT] 4 mg SL Q6HR PRN #30 tab.rapdis 08/15/17 [Rx] Psyllium Husk/Aspartame [Metamucil Fiber Singles Packet] 3.4 gm PO DAILY #30 powd.pack 08/15/17 [Rx] Allergies/Adverse Reactions: 3 Allergy/AdvReac Type Severity Reaction Status Date / Time baclofen AdvReac Headache Verified 08/10/17 19:26 clonazepam AdvReac See Verified 08/10/17 19:26 Comments Cyclobenzaprine AdvReac Gastrointestinal Verified 08/10/17 19:26 [From Flexeril] Upset gabapentin [From Neurontin] AdvReac Headache Verified 08/10/17 19:26 ibuprofen [From Motrin] AdvReac Chest Pain Verified 08/10/17 19:26 meloxicam [From Mobic] AdvReac See Verified 08/10/17 19:26 Comments methocarbamol AdvReac Gastrointestinal Verified 08/10/17 19:26 Upset methotrexate AdvReac See Verified 08/10/17 19:26 Comments naproxen [From Naprosyn] AdvReac See Verified 08/10/17 19:26 Comments Penicillins AdvReac Vomiting Verified 08/10/17 19:26 pregabalin [From Lyrica] AdvReac Headache Verified 08/10/17 19:26 Sulindac AdvReac Gastrointestinal Verified 08/10/17 19:26 Upset Tizanidine [From Zanaflex] AdvReac Headache Verified 08/10/17 19:26 General Surgery Exam Initial Vital Signs Temp Pulse Resp BP Pulse Ox 97.4 F L 70 15 99/65 93 08/10/17 15:52 08/10/17 15:52 08/10/17 15:52 08/10/17 15:52 08/10/17 15:52 - General physical appearance well developed, well nourished, no distress - Eyes normal ocular movement - ENT normal mucosa, atraumatic, normocephalic - Neck trachea midline - Respiratory normal respiratory effort, clear to auscultation - Cardiovascular Cardiovascular exam: Present: RRR - Abdomen Abdomen general surgery: Present: bowel sounds present, soft, tender (Expected postoperative tenderness) - Incision Incision: Present: clean and dry, intact - Integumentary Integumentary general surgery: Present: warm and dry - Neurologic Present: CN 2-12 grossly intact - Musculoskeletal Present: other (Moderate deconditioning) - Psychiatric Psychiatric general surgery: Present: appropriate, oriented to person, oriented to place, oriented to time, speech is normal, memory intact Date of admission: 08/10/17 15:52 Primary care physician: PCP NONE Consults: 08/12/17 12:03 Consult to Occupational Therapy [CONS] Routine Comment: Evaluate, develop and implement POC Reason for Consult: evaluate and developg POC Consult to Physical Therapy [CONS] Routine Comment: Evaluate, develop and implement POC Reason for Consult: evaluate and developg POC 08/13/17 12:12 Consult to Renal Social Worker [CONS] Routine Reason for SW Consult: needs on discharge Discharging clinician: Evin Velasquez (Lizzy Brown) Anticipated date of discharge: 08/16/17 - Patient Status Disposition: Home Health Service Condition: Good Functional capacity at discharge: independent ambulation Overall status at discharge: patient is progressing back to baseline - Discharge Instructions Instructions: [facility] (GEN) Follow Up With: Nohemy Brown CNP [Advanced Practice Nurse] - 08/29/17 9:45 am (surgery follow-up) Jose Luis Dunaway CNP [Family Provider] - (1-2 week hospital follow-up) Additional Instructions: #1 may shower, no tub bath for 2 weeks #2 wash incisions with soap and water and pat dry daily #3 no lifting, pushing, pulling more than 15 pounds for the next 4 weeks #4 no driving until off narcotics for 24 hours and able to safely react in the car #5 may climb stairs #6 Continue pelvic floor exercises daily - Diet and Activity Activity: other (See additional instructions above) Diet: advance to your usual diet - Hospital Course Hospital course: Ms. Lemos is a 72 year old female was seen and evaluated in the outpatient surgical office for rectal prolapse. The patient was very symptomatic and experiencing difficulty in performing her daily activities. She was experiencing severe discomfort associated with the rectal prolapse. She was directly admitted to the hospital and initiated on supportive measures. She was started on IV fluids and pain control. She was seen and evaluated by Dr. Velasquez. After discussion of the risks, benefits, alternatives, expected outcomes she was in agreement to proceed to the operating room for a robotic- assisted low anterior resection for treatment of her symptomatic rectal prolapse. The patient was maintained on supportive measures postoperatively. Her diet was slowly advanced as tolerated and she is currently tolerating a regular diet without nausea or vomiting. Her vital signs are stable and she is afebrile. Her postoperative pain is well controlled. She is experiencing loose stools and difficulty with control of her bowels. She is instructed on exercises to strengthen her pelvic floor muscles. She verbalized understanding. PT and OT have been consulted during the patients stay for evaluation and mobilization. We will begin discharge planning to home with home health care on plan for outpatient follow-up in the next 10-14 days. - Time Spent with Patient Total time spent providing and/or coordinating discharge services: Greater than 30 minutes Labs on day of discharge: Labs from last 24 hours 08/15/17 08/15/17 08/15/17 11:16 05:01 03:03 WBC 8.2 RBC 3.35 L Hgb 10.6 L Hct 32.6 L MCV 97.3 MCH 31.6 MCHC 32.5 RDW 13.5 Plt Count 322 MPV 11.8 Immature Gran % 0.4 Seg Neutrophils % 64.5 Lymphocytes % 25.5 Monocytes % 7.4 Eosinophils % 2.0 Basophils % 0.2 Neutrophils # 5.3 Lymphocytes # 2.1 Monocytes # 0.6 Eosinophils # 0.2 Basophils # 0.0 Sodium 141 Potassium 3.3 L Chloride 108 Carbon Dioxide 23 BUN 4 L Creatinine 0.53 L Est GFR ( Amer) > 60 Est GFR (Non-Af Amer) > 60 BUN/Creatinine Ratio 8 Glucose 102 H Calculated Osmolality 289 Calcium 8.3 L Specimen Rejected Volume - Attending Attestation For this encounter, I have reviewed the [employer] REPAIRER or PA documentation, treatment plan, and medical decision making; and I have had face to face time with this patient.
[2017-08-15] MEDS ORDERED: *HR* GlipiZIDE XL (24 HR) 2.5 MG TABLET PO PRN (14:18)
[2017-08-15] MEDS: *HR* HYDROmorphone (PF) 1 MG/ML SYRINGE IVP PRN (14:19)
[2017-08-15] MEDS ORDERED: *HR* OxyCODONE Immed Rel 5 MG TABLET PO SCH (14:30)
--- NOTE | 2017-08-15 14:37 | Physician Discharge Referral ---
Home Health/Hosp Referral Info Transfer to: Home Health Attending Provider: Dr. Patrice Velasquez Provider in Charge Post Discharge: Other (PCP and Dr. Patrice Velasquez) - Diagnosis (1) Rectal prolapse Priority: Primary Status: Resolved (2) COPD (chronic obstructive pulmonary disease) Priority: Secondary Status: Chronic (3) Rheumatoid arthritis Priority: Secondary Status: Chronic (4) Crohn's disease Priority: Secondary Status: Chronic (5) Diarrhea Priority: Secondary Status: Acute - Respiratory Orders None - Dressing/Wound Care Site: Abdominal incisions Type of Dressing/Treatments w/Frequency: Cleanse incisions with soap and water and pat dry daily in the shower. May leave open to air. - Diet/Nutrition Diet/Nutrition Orders: Regular (Diabetic modifications) - Activity Activity Orders: Up ad saeid, Ambulate - Services Needed Following services are medically necessary services: Nursing, Home Health Aide, Physical Therapy, Occupational Therapy - Transfer Medications Prescriptions: Ondansetron ODT [Zofran ODT] 4 mg SL Q6HR PRN #30 tab.rapdis PRN Reason: Nausea Ibuprofen [Motrin] 800 mg PO Q8HR PRN #40 tablet PRN Reason: Pain Commode - Three In One [THREE IN ONE COMMODE] 1 each .ROUTE PRN #1 each Home Medications: ALPRAZolam [Xanax 1 MG Tablet] 1 mg PO BID 08/10/17 [History] Acetaminophen [Tylenol Arthritis] 650 mg PO Q8H PRN 08/10/17 [History] Alendronate Sodium 70 mg PO QWEEK 08/10/17 [History] Duloxetine HCl [Cymbalta] 60 mg PO DAILY 08/10/17 [History] Ezetimibe 10 mg PO DAILY 08/10/17 [History] Folic Acid 1 mg PO DAILY 08/10/17 [History] Furosemide [Lasix] 20 mg PO BID PRN 08/10/17 [History] GlipiZIDE XL (24 HR) [Glucotrol XL] 2.5 mg PO DAILY PRN 08/10/17 [History] Levothyroxine Sodium 137 mcg PO QDPC 08/10/17 [History] Loratadine [Claritin] 10 mg PO DAILY 08/10/17 [History] Morphine Sulfate SR (12 HR) [MS Contin] 30 mg PO TID 08/10/17 [History] Omeprazole [PriLOSEC] 20 mg PO QDPC 08/10/17 [History] Oxycodone HCl 0.5 tab PO BID 08/10/17 [History] Potassium Chloride 10 meq PO BID PRN 08/10/17 [History] Umeclidinium [place] [Incruse Ellipta] 62.5 mcg IH DAILY 08/10/17 [History] Commode - Three In One [THREE IN ONE COMMODE] 1 each .ROUTE PRN #1 each [Rx] Ibuprofen [Motrin] 800 mg PO Q8HR PRN #40 tablet 08/15/17 [Rx] Ondansetron ODT [Zofran ODT] 4 mg SL Q6HR PRN #30 tab.rapdis 08/15/17 [Rx] Allergies/Adverse Reactions: 3 Allergy/AdvReac Type Severity Reaction Status Date / Time baclofen AdvReac Headache Verified 08/10/17 19:26 clonazepam AdvReac See Verified 08/10/17 19:26 Comments Cyclobenzaprine AdvReac Gastrointestinal Verified 08/10/17 19:26 [From Flexeril] Upset gabapentin [From Neurontin] AdvReac Headache Verified 08/10/17 19:26 ibuprofen [From Motrin] AdvReac Chest Pain Verified 08/10/17 19:26 meloxicam [From Mobic] AdvReac See Verified 08/10/17 19:26 Comments methocarbamol AdvReac Gastrointestinal Verified 08/10/17 19:26 Upset methotrexate AdvReac See Verified 08/10/17 19:26 Comments naproxen [From Naprosyn] AdvReac See Verified 08/10/17 19:26 Comments Penicillins AdvReac Vomiting Verified 08/10/17 19:26 pregabalin [From Lyrica] AdvReac Headache Verified 08/10/17 19:26 Sulindac AdvReac Gastrointestinal Verified 08/10/17 19:26 Upset Tizanidine [From Zanaflex] AdvReac Headache Verified 08/10/17 19:26 Certification: Further, I certify that my clinical findings support that this patient is homebound (i.e. absences from home require considerable and taxing effort and are for medical reasons or faith services or infrequently or short duration when for other reasons) because: Homebound Reason: Patient requires assistance of a person or device to safely leave home, Post-surgery restriction and or conditions limit ability to leave home, Leaving home requires considerable and taxing effort due to condition Attestation: My signature below is to certify that this patient is under my care and that I, or nurse practitioner, or a physician's paraprofessional education assistant working with me, has a face-to -face encounter with this patient.
[2017-08-15] MEDS ORDERED: *HR* OxyCODONE Immed Rel 5 MG TABLET PO PRN (14:49)
[2017-08-15] MEDS ORDERED: *HR* Morphine Sulfate SR (12 HR) 30 MG TABLET.ER PO SCH (15:00)
[2017-08-15] MEDS ORDERED: Furosemide 20 MG TABLET PO PRN (17:00)
[2017-08-15 18:53] VITALS: BP 115/70
[2017-08-16] MEDS ORDERED: Loratadine 10 MG TABLET PO SCH (09:00)
[2017-08-16] MEDS ORDERED: (Ezetimibe [Ezetimibe] 10 MG) PO SCH (09:00)
[2017-08-16] MEDS ORDERED: Folic Acid 1 MG TABLET PO SCH (09:00)
== END 2017-08-15 20:55 | disposition home health service (06) | DRG 333 ==
LOC: 3ANU
PROVIDERS: ADMIT Surgery; ATTEND Surgery

== ENCOUNTER 2017-08-19 05:03 | Inpatient (IN) ==
--- NOTE | 2017-08-19 09:09 | General Surg History&Physical ---
Date of Encounter: 08/19/17 Time of Encounter: 09:07 Assessment and Plan (1) Ileus following gastrointestinal surgery Current Visit: Yes Status: Acute She will have an NG tube to [employer]und[employer] and wall suction. Ezekiel move her to a stepdown unit. I am also going to order chest x-ray due to her hypoxia. Her initial set of cardiac enzymes were negative. She has got a negative EKG. The assessment and plan as outlined above was discussed with the patient and/or family members who expressed understanding and agreement. All questions were answered. History of Present Illness HPI: Ms. Lemos is a 72 year old female that is status post low anterior resection for rectal prolapse. She was discharged on Tuesday. At that point she was doing quite well and tolerating meals. She was having diarrhea fairly frequently. She began to use Metamucil to thicken her bowel movements. Subsequently over the next 2 days she began to slow her stool to a point to where she has not had a bowel movement now and 30 hours. She became nauseated. She began to vomit. She went to the ER at [facility]. CT scan was performed and she was in subsequent transfer to [place]. Past Med Surg Social Fam HX - Past Medical History Medical history: CHF, COPD, diabetes, RA, thyroid disease, other Psychiatric history: anxiety - Past Surgical History Surgical History: colectomy, thyroidectomy - Social History Smoking Status: Former smoker Smokeless Tobacco Status: No Alcohol use: none Drug use: none Medications and Allergies ALPRAZolam [Xanax 1 MG Tablet] 1 mg PO BID 08/10/17 [History] Acetaminophen [Tylenol Arthritis] 650 mg PO Q8H PRN 08/10/17 [History] Alendronate Sodium 70 mg PO QWEEK 08/10/17 [History] Duloxetine HCl [Cymbalta] 60 mg PO DAILY 08/10/17 [History] Ezetimibe 10 mg PO DAILY 08/10/17 [History] Folic Acid 1 mg PO DAILY 08/10/17 [History] Furosemide [Lasix] 20 mg PO BID PRN 08/10/17 [History] GlipiZIDE XL (24 HR) [Glucotrol XL] 2.5 mg PO DAILY PRN 08/10/17 [History] Levothyroxine Sodium 137 mcg PO DAILY 08/10/17 [History] Loratadine [Claritin] 10 mg PO DAILY 08/10/17 [History] Morphine Sulfate SR (12 HR) [MS Contin] 30 mg PO TID 08/10/17 [History] Omeprazole [PriLOSEC] 20 mg PO DAILY 08/10/17 [History] Oxycodone HCl 0.5 tab PO BID 08/10/17 [History] Potassium Chloride 10 meq PO BID PRN 08/10/17 [History] Ibuprofen [Motrin] 800 mg PO Q8HR PRN #40 tablet 08/15/17 [Rx] Loperamide [Imodium] 2 mg PO Q2H PRN #60 capsule 08/15/17 [Rx] Ondansetron ODT [Zofran ODT] 4 mg SL Q6HR PRN #30 tab.rapdis 08/15/17 [Rx] Psyllium Husk/Aspartame [Metamucil Fiber Singles Packet] 3.4 gm PO DAILY #30 powd.pack 08/15/17 [Rx] Budesonide/Formoterol 160/4.5 [Symbicort 160/4.5] 2 puff IH BIDR 08/19/17 [ History] 3 Allergy/AdvReac Type Severity Reaction Status Date / Time baclofen AdvReac Headache Verified 08/10/17 19:26 clonazepam AdvReac See Verified 08/10/17 19:26 Comments Cyclobenzaprine AdvReac Gastrointestinal Verified 08/10/17 19:26 [From Flexeril] Upset gabapentin [From Neurontin] AdvReac Headache Verified 08/10/17 19:26 ibuprofen [From Motrin] AdvReac Chest Pain Verified 08/10/17 19:26 meloxicam [From Mobic] AdvReac See Verified 08/10/17 19:26 Comments methocarbamol AdvReac Gastrointestinal Verified 08/10/17 19:26 Upset methotrexate AdvReac See Verified 08/10/17 19:26 Comments naproxen [From Naprosyn] AdvReac See Verified 08/10/17 19:26 Comments Penicillins AdvReac Vomiting Verified 08/10/17 19:26 pregabalin [From Lyrica] AdvReac Headache Verified 08/10/17 19:26 Sulindac AdvReac Gastrointestinal Verified 08/10/17 19:26 Upset Tizanidine [From Zanaflex] AdvReac Headache Verified 08/10/17 19:26 Review of Systems All systems PM: reviewed and no additional remarkable complaints except as stated All systems PM: A 10-system review of systems was performed and is negative for pertinent findings except as documented above in the HPI. General Surgery Exam Initial Vital Signs Temp Pulse Resp BP Pulse Ox 98.6 F 90 18 97/62 90 08/19/17 08:46 08/19/17 08:46 08/19/17 08:46 08/19/17 08:46 08/19/17 08:46 - General physical appearance well nourished - Eyes PERRL - Neck trachea midline - Cardiovascular Cardiovascular exam: Present: NR - Abdomen Abdomen general surgery: Present: soft, non tender - Neurologic Present: CN 2-12 grossly intact, normal sensation - Psychiatric Psychiatric general surgery: Present: A&Ox3 Results - Labs All other labs normal.
[2017-08-19] MEDS: 0.9 % Sodium Chloride 1,000 ML IVC SCH (12:10)
[2017-08-19 12:26] LABS: Alanine Aminotransferase 17 Units/L (0-55); Albumin 2.8 g/dL (3.5-5.0); Albumin/Globulin Ratio 0.6 (1.1-2.2); Alkaline Phosphatase 105 Units/L (38-126); Aspartate Amino Transferase 12 Units/L (5-34); BUN/Creatinine Ratio 22 (6-26); Bilirubin,Total 0.6 mg/dL (0.2-1.2); Blood Urea Nitrogen 17 mg/dL (7-20); Calcium 9.9 mg/dL (8.6-10.8); Carbon Dioxide 20 mEq/L (19-29); Chloride 104 mEq/L (98-109); Glucose 153 mg/dL (70-99); Osmolality,Calculated 293 (280-300); Potassium 3.7 mEq/L (3.5-4.5); Sodium 139 mEq/L (136-145); Total Protein 7.8 g/dL (6.0-8.3); eGFR For African Americans > 60 (> 60); eGFR For Non-African Americans > 60 (> 60)
[2017-08-19 12:40] LABS: Hemoglobin 11.2 g/dL (11.5-15.4); Mean Corpuscular Hemoglobin 31.4 pg (28.0-33.3); Mean Platelet Volume 11.4 fL (9.4-12.4); Platelet Count 355 K/mcL (140-400); Red Blood Count 3.57 M/mcL (3.82-4.97); Red Cell Distribution Width 13.7 % (11.5-14.5)
[2017-08-19 13:08] LABS: Monocytes # 0.1 K/mcL (0.0-1.3); Neutrophils # 4.6 K/mcL (1.6-8.9)
[2017-08-19 13:09] LABS: Platelet Estimate Normal (Normal)
[2017-08-19] MEDS ORDERED: Acetaminophen IV 1,000 MG/100 ML INFUS..BTL IVPB ONE ×2 (13:23→17:19)
--- NOTE | 2017-08-19 13:45 | Event Note ---
Date of Encounter: 08/19/17 Time of Encounter: 13:20 Notified by FAVIO Mcmanus of fever and critical TNI (0.07). Noted TNI at [facility] 0.103 at 0308 this am. Ordered IV Ofirmev 1G x1 and consulted cardiology for concern for NSTEMI. Spoke with patient and son who intially denied any cardiac history, but then confirmed history of CHF and following with Dr. Diggs at [facility]. Obtain old records from Dr. Diggs at [facility]. Spoke with Dr. Guo regarding cardiology consult.
--- NOTE | 2017-08-19 15:21 | Cardiology Consult Note ---
Date of Encounter: 08/19/17 Time of Encounter: 15:18 Assessment and Plan (1) Elevated troponin Current Visit: Yes Status: Acute .07 first troponin with nml EKG likely demand ischemia but will wait for CE trend. Apparently has seen Practice Office Associate from outside hospital in the past. Will obtain records to review. No cardiac procedures/tests planned unless active CP or next repeat troponin above 1.0. Stress test as an OP vs IP reasonable when SBO resolves. Please notify cardiology when SBO resolves for reccomendations in regards to cardiac work up. Discussion w patient/family: The assessment and plan as outlined above was discussed with the patient and/or family members who expressed understanding and agreement. All questions were answered. Thank you for involving us in the care of your patient. Please call with any questions. History of Present Illness Consult date: 08/19/17 Consult reason: elevated troponins Chief complaint: nausea, belly pain History of present illness: Ms. Lemos is a 72 year old female with h/o COPD, no significant cardiac disease presents today after a rectal prolapse resection last week with SBO, associated with belly pain early satiety, and nausea. Chest xray reveals atelectasis bibasilar, no pulmonary congestion. EKG is unremarkable as well. Patient current unable to provide any history mostly obtained from family at bedside. No complaints of chest pain or worsening SOB. Mostly complaints related to SBO. Past Med Surg Social Fam HX - Past Medical History Medical history: CHF, COPD, diabetes, RA, thyroid disease, other Psychiatric history: anxiety - Past Surgical History Surgical History: colectomy, thyroidectomy - Social History Smoking Status: Former smoker Smokeless Tobacco Status: No Alcohol use: none Drug use: none Medications and Allergies ALPRAZolam [Xanax 1 MG Tablet] 1 mg PO BID 08/10/17 [History] Acetaminophen [Tylenol Arthritis] 650 mg PO Q8H PRN 08/10/17 [History] Alendronate Sodium 70 mg PO QWEEK 08/10/17 [History] Duloxetine HCl [Cymbalta] 60 mg PO DAILY 08/10/17 [History] Ezetimibe 10 mg PO DAILY 08/10/17 [History] Folic Acid 1 mg PO DAILY 08/10/17 [History] Furosemide [Lasix] 20 mg PO BID PRN 08/10/17 [History] GlipiZIDE XL (24 HR) [Glucotrol XL] 2.5 mg PO DAILY PRN 08/10/17 [History] Levothyroxine Sodium 137 mcg PO DAILY 08/10/17 [History] Loratadine [Claritin] 10 mg PO DAILY 08/10/17 [History] Morphine Sulfate SR (12 HR) [MS Contin] 30 mg PO TID 08/10/17 [History] Omeprazole [PriLOSEC] 20 mg PO DAILY 08/10/17 [History] Oxycodone HCl 0.5 tab PO BID 08/10/17 [History] Potassium Chloride 10 meq PO BID PRN 08/10/17 [History] Ibuprofen [Motrin] 800 mg PO Q8HR PRN #40 tablet 08/15/17 [Rx] Loperamide [Imodium] 2 mg PO Q2H PRN #60 capsule 08/15/17 [Rx] Ondansetron ODT [Zofran ODT] 4 mg SL Q6HR PRN #30 tab.rapdis 08/15/17 [Rx] Psyllium Husk/Aspartame [Metamucil Fiber Singles Packet] 3.4 gm PO DAILY #30 powd.pack 08/15/17 [Rx] Budesonide/Formoterol 160/4.5 [Symbicort 160/4.5] 2 puff IH BIDR 08/19/17 [ History] 3 Allergy/AdvReac Type Severity Reaction Status Date / Time baclofen AdvReac Headache Verified 08/10/17 19:26 clonazepam AdvReac See Verified 08/10/17 19:26 Comments Cyclobenzaprine AdvReac Gastrointestinal Verified 08/10/17 19:26 [From Flexeril] Upset gabapentin [From Neurontin] AdvReac Headache Verified 08/10/17 19:26 ibuprofen [From Motrin] AdvReac Chest Pain Verified 08/10/17 19:26 meloxicam [From Mobic] AdvReac See Verified 08/10/17 19:26 Comments methocarbamol AdvReac Gastrointestinal Verified 08/10/17 19:26 Upset methotrexate AdvReac See Verified 08/10/17 19:26 Comments naproxen [From Naprosyn] AdvReac See Verified 08/10/17 19:26 Comments Penicillins AdvReac Vomiting Verified 08/10/17 19:26 pregabalin [From Lyrica] AdvReac Headache Verified 08/10/17 19:26 Sulindac AdvReac Gastrointestinal Verified 08/10/17 19:26 Upset Tizanidine [From Zanaflex] AdvReac Headache Verified 08/10/17 19:26 All Systems Review: A 10-system review of systems was performed and is negative for pertinent findings except as documented above in the HPI. Physical Examination Vital Signs, Last 4 Hours Temp Pulse Resp BP Pulse Ox 08/19/17 11:55 100.4 F H 103 16 114/65 96 General: Conversant, No Apparent Distress HEENT: Atraumatic, Normocephaly, Mucus Membranes Moist Neck: No JVD, Normal carotid pulses Cardiac: Reg Rate and Rhythm, Normal S1 and S2, No Murmur Lungs: Normal Breath Sounds (diminished bibasilar), No Wheeze, Rales, Rhonchi Neuro: Alert and responsive, No focal deficits noted Abdomen: Soft, Non-Tender Skin: No rashes noted on visualized skin Musculoskeletal: No Chest Wall Tenderness Extremities: No Clubbing, No Cyanosis, No Edema, Normal Pulses Results 08/19/17 12:02 08/19/17 12:02 Lab Results 08/19/17 08/19/17 08/19/17 12:02 12:02 12:02 WBC 5.7 Hgb 11.2 L Hct 35.0 L Plt Count 355 Sodium 139 Potassium 3.7 Chloride 104 Carbon Dioxide 20 BUN 17 Creatinine 0.78 Glucose 153 H Calcium 9.9 Total Bilirubin 0.6 AST 12 ALT 17 Alkaline Phosphatase 105 Troponin I 0.07 H* Consult Discharge Plan - Plan Referrals: NONE,PCP [Primary Care Provider] - Jose Luis Dunaway, POMOLOGY TEACHER [Family Provider] -
[2017-08-19] MEDS: *HR* Heparin 5,000 UNIT/ML VIAL SQ SCH (18:27)
[2017-08-19 18:30] LABS: Bilirubin,Urine Negative (Negative); Blood,Urine Negative (Negative); Clarity,Urine Clear (Clear); Color,Urine Yellow (Yellow); Glucose,Urine (UA) Normal (Normal); Ketones,Urine Negative (Negative); Leukocyte Esterase,Urine Negative (Negative); Nitrite,Urine Negative (Negative); Protein,Urine 30 mg/dL (Neg-Trace); Specific Gravity,Urine > 1.030 (1.010-1.025); Urobilinogen,Urine Normal (Normal)
[2017-08-19 18:33] LABS: Bacteria,Urine None Seen per hpf (None-Few); Hyaline Casts,Urine None Seen per lpf (None-Few); RBC,Urine 0-3 per hpf (0-3); Squamous Epithelial Cell,Urine Many per lpf (None-Few)
[2017-08-19] MEDS ORDERED: Chloraseptic Spray 177 ML BOTTLE MM PRN (22:35)
[2017-08-20] MEDS: *HR* Morphine 2 MG/ML SYRINGE IVP PRN ×4 (01:13→23:49)
[2017-08-20] MEDS: 0.9 % Sodium Chloride 1,000 ML IVC SCH ×2 (01:30→14:35)
[2017-08-20 04:44] LABS: Hematocrit 33.1 % (35.3-44.9); Hemoglobin 10.6 g/dL (11.5-15.4); Mean Corpuscular Hemoglobin 31.5 pg (28.0-33.3); Mean Corpuscular Volume 98.2 fL (83.0-100.0); Mean Platelet Volume 11.2 fL (9.4-12.4); Platelet Count 331 K/mcL (140-400); Red Blood Count 3.37 M/mcL (3.82-4.97); Red Cell Distribution Width 13.7 % (11.5-14.5)
[2017-08-20 04:56] LABS: BUN/Creatinine Ratio 33 (6-26); Blood Urea Nitrogen 25 mg/dL (7-20); Calcium 9.3 mg/dL (8.6-10.8); Carbon Dioxide 24 mEq/L (19-29); Chloride 106 mEq/L (98-109); Glucose 146 mg/dL (70-99); Magnesium 1.5 mg/dL (1.6-2.6); Osmolality,Calculated 299 (280-300); Phosphorous 2.7 mg/dL (2.3-4.7); Potassium 3.5 mEq/L (3.5-4.5); Sodium 141 mEq/L (136-145); eGFR For African Americans > 60 (> 60); eGFR For Non-African Americans > 60 (> 60)
[2017-08-20 05:45] LABS: Eosinophils # 0.2 K/mcL (0.0-0.6); Lymphocytes # 1.7 K/mcL (0.6-4.6); Monocytes # 0.4 K/mcL (0.0-1.3); Neutrophils # 6.4 K/mcL (1.6-8.9); Platelet Estimate Normal (Normal)
[2017-08-20 05:46] LABS: Polychromasia 1+ (Not Present)
[2017-08-20] MEDS: *HR* Heparin 5,000 UNIT/ML VIAL SQ SCH ×2 (06:04→17:44)
[2017-08-20] MEDS ORDERED: Magnesium Sulfate 2 GM in D5% in Water 100 ML IVPB ONE (07:11)
--- NOTE | 2017-08-20 09:45 | General Surgery Progress Note ---
<Baldev Hennessy - Last Filed: 08/20/17 14:21> Date of Encounter: 08/20/17 Time of Encounter: 09:43 - Assessment and Plan (1) Ileus following gastrointestinal surgery Current Visit: Yes Status: Acute - Status post low anterior resection for rectal prolapse and subsequently developed ileus. She was discharged on Tuesday - Patient denies any symptoms of pain, nausea, vomiting. She states she has had 2 bowel movements without evidence of blood - Nasogastric tube draining somewhere between 1 and 2 L since midnight, unclear due to charting overnight - Due to patient's continued large amount of NG tube output, we will continue to keep nothing by mouth however allow her to have patient's chips and popsicles up to every 6 hours - We will continue to monitor for decreased NG output at which time we can try a trial of clear liquids - Continue supportive care and bowel rest (2) Hypokalemia Current Visit: Yes Status: Acute Potassium of 3.5 on most recent lab draws, we will continue to monitor at this time and replace as necessary - Magnesium of 1.5 this morning, will give 2 g replacement (3) Elevated troponin Current Visit: Yes Status: Acute Troponin 0.07 yesterday, has down trended to 0.05 today - Cardiology has been consulted and are following, appreciate recommendations - State that is most likely due to demand ischemia, but will follow - No complaints of chest pain currently (4) DVT prophylaxis Current Visit: No Status: Acute - Heparin 5000 units every 12 hours Subjective Patient reports: no new complaints, feels better, pain is less, voiding w/o difficulty, flatus, bowel movement Narrative: Patient was seen and examined at bedside this morning. She states that overall she is feeling well without any complaints of pain, nausea, vomiting. She states that she is passing gas and having bowel movements. NG tube still in place putting out 2800 mL since yesterday. Patient's main complaint this morning was that she is extremely hungry and would just like something to eat. Objective Vital Signs - Last 8 Hours Temp Pulse Resp BP Pulse Ox 08/20/17 06:42 98.0 F 79 14 119/63 92 08/20/17 05:06 96 08/20/17 04:00 97.9 F 77 18 105/57 92 Intake and Output 08/19/17 08/20/17 08/20/17 23:59 07:59 15:59 Intake Total 0 / 0 1000 / 1000 Output Total 900 / 900 0 / 0 Balance -900 / -900 1000 / 1000 Intake: IV Fluids 1000 / 1000 0.9 % Sodium Chloride 1,000 ML 1000 / 1000 @ 70 mls/hr IVC .[id number] [facility] Rx #:[id number] Oral 0 / 0 0 / 0 Output: Urine 0 / 0 Gastric Drainage 900 / 900 Right Nare 900 / 900 Other: # Voids 0 Blood Glucose* 177 146 - General physical appearance well developed, well nourished, no distress - Respiratory normal expansion, normal respiratory effort, clear to auscultation - Cardiovascular Cardiovascular exam: Present: RRR, no murmurs/rubs/gallops - Abdomen Abdomen: Present: bowel sounds present, soft, non tender - Labs 08/20/17 04:29 08/20/17 04:29 Diabetes panel 08/19/17 08/20/17 Range/Units 12:02 04:29 Sodium 139 141 (136-145) mEq/L Potassium 3.7 3.5 (3.5-4.5) mEq/L Chloride 104 106 (98-109) mEq/L Carbon Dioxide 20 24 (19-29) mEq/L BUN 17 25 H (7-20) mg/dL Creatinine 0.78 0.76 (0.57-1.11) mg/dL Glucose 153 H 146 H (70-99) mg/dL Calcium 9.9 9.3 (8.6-10.8) mg/dL AST 12 (5-34) Units/L ALT 17 (0-55) Units/L Alkaline Phosphatase 105 (38-126) Units/L Albumin 2.8 L (3.5-5.0) g/dL Calcium panel 08/19/17 08/20/17 Range/Units 12:02 04:29 Calcium 9.9 9.3 (8.6-10.8) mg/dL Phosphorus 2.7 (2.3-4.7) mg/dL Albumin 2.8 L (3.5-5.0) g/dL Pituitary panel 08/19/17 08/20/17 Range/Units 12:02 04:29 Sodium 139 141 (136-145) mEq/L Potassium 3.7 3.5 (3.5-4.5) mEq/L Chloride 104 106 (98-109) mEq/L Carbon Dioxide 20 24 (19-29) mEq/L BUN 17 25 H (7-20) mg/dL Creatinine 0.78 0.76 (0.57-1.11) mg/dL Glucose 153 H 146 H (70-99) mg/dL Calcium 9.9 9.3 (8.6-10.8) mg/dL Adrenal panel 08/19/17 08/20/17 Range/Units 12:02 04:29 Sodium 139 141 (136-145) mEq/L Potassium 3.7 3.5 (3.5-4.5) mEq/L Chloride 104 106 (98-109) mEq/L Carbon Dioxide 20 24 (19-29) mEq/L BUN 17 25 H (7-20) mg/dL Creatinine 0.78 0.76 (0.57-1.11) mg/dL Glucose 153 H 146 H (70-99) mg/dL Calcium 9.9 9.3 (8.6-10.8) mg/dL Total Bilirubin 0.6 (0.2-1.2) mg/dL AST 12 (5-34) Units/L ALT 17 (0-55) Units/L Alkaline Phosphatase 105 (38-126) Units/L Albumin 2.8 L (3.5-5.0) g/dL Consult Discharge Plan - Plan Referrals: Jose Luis Dunaway, OFFICE COMMUNICATION PROFESSOR [Family Provider] - NONE,PCP [Primary Care Provider] - <Carlos Manuel Osorio - Last Filed: 08/22/17 06:40> Date of Encounter: 08/20/17 Objective Vital Signs - Last 8 Hours Temp Pulse Resp BP Pulse Ox 08/22/17 06:32 98.2 F 82 14 122/70 92 08/22/17 03:20 97.7 F 80 14 116/69 94 08/21/17 23:38 99.5 F 89 15 119/73 94 Intake and Output 08/21/17 08/21/17 08/22/17 15:59 23:59 07:59 Intake Total 300 / 300 1000 / 1000 1100 / 1100 Balance 300 / 300 1000 / 1000 1100 / 1100 Intake: IV Fluids 300 / 300 1000 / 1000 1100 / 1100 0.9 % Sodium Chloride 1,000 ML 1000 / 1000 1000 / 1000 @ 70 mls/hr IVC .[id number] [facility] Rx #:[id number] Ofirmev 1,000 mg/100 ml 1,000 100 / 100 mg In 100 ml @ 400 mls/hr IVPB Q6HR PRN Rx#:[id number] Potassium Chloride 10 mEq/100mL 300 / 300 10 meq In 100 ml @ 100 mls/hr IVPB Q1H [facility] Rx#:[id number] Other: Stool Size Moderate Stool Consistency liquid Stool Characteristics Normal for Patient Stool Color Green # Voids 0 0 # Urine Diapers 0 # Bowel Movements 1 # Bowel Movement Diapers 1 Weight 63.2 kg Blood Glucose* 122 113 Patient Weight 08/22/17 23:59 Weight 63.2 kg - Labs 08/22/17 02:31 08/22/17 02:31 Diabetes panel 08/22/17 Range/Units 02:31 Sodium 140 (136-145) mEq/L Potassium 3.2 L (3.5-4.5) mEq/L Chloride 105 (98-109) mEq/L Carbon Dioxide 26 (19-29) mEq/L BUN 15 (7-20) mg/dL Creatinine 0.63 (0.57-1.11) mg/dL Glucose 105 H (70-99) mg/dL Calcium 8.0 L (8.6-10.8) mg/dL Calcium panel 08/22/17 Range/Units 02:31 Calcium 8.0 L (8.6-10.8) mg/dL Phosphorus 1.1 L (2.3-4.7) mg/dL Pituitary panel 08/22/17 Range/Units 02:31 Sodium 140 (136-145) mEq/L Potassium 3.2 L (3.5-4.5) mEq/L Chloride 105 (98-109) mEq/L Carbon Dioxide 26 (19-29) mEq/L BUN 15 (7-20) mg/dL Creatinine 0.63 (0.57-1.11) mg/dL Glucose 105 H (70-99) mg/dL Calcium 8.0 L (8.6-10.8) mg/dL Adrenal panel 08/22/17 Range/Units 02:31 Sodium 140 (136-145) mEq/L Potassium 3.2 L (3.5-4.5) mEq/L Chloride 105 (98-109) mEq/L Carbon Dioxide 26 (19-29) mEq/L BUN 15 (7-20) mg/dL Creatinine 0.63 (0.57-1.11) mg/dL Glucose 105 H (70-99) mg/dL Calcium 8.0 L (8.6-10.8) mg/dL - Attending Attestation I examined this patient and my medical decision-making was reviewed with the Resident Physician. I agree with the documented findings, disposition and treatment plan as described except to the extent set forth below. Review the assessment and evaluation with the resident as noted above. NG tube output is still elevated so we will continue with the NG tube. Will allow ice chips/popsicles. Additionally, we will add Ativan to IV medication for anxiety.
[2017-08-20] MEDS: Pantoprazole 40 MG VIAL IVP SCH (11:16)
[2017-08-20] MEDS: *HR* LORazepam 2 MG/ML VIAL IVP PRN ×2 (14:34→21:45)
[2017-08-21] MEDS ORDERED: 0.9 % Sodium Chloride 500 ML IVC ONE (01:00)
[2017-08-21] MEDS: 0.9 % Sodium Chloride 1,000 ML IVC SCH ×3 (03:41→20:51)
[2017-08-21 03:42] LABS: Basophils # 0.1 K/mcL (0.0-0.2); Basophils % 0.4 %; Eosinophils % 0.4 %; Hematocrit 32.9 % (35.3-44.9); Hemoglobin 10.4 g/dL (11.5-15.4); Immature Granulocytes % 1.4 % (0-4); Lymphocytes # 1.9 K/mcL (0.6-4.6); Lymphocytes % 16.7 %; Mean Corpuscular HGB Conc 31.6 g/dL (31.6-35.5); Mean Corpuscular Hemoglobin 30.7 pg (28.0-33.3); Mean Corpuscular Volume 97.1 fL (83.0-100.0); Mean Platelet Volume 11.2 fL (9.4-12.4); Monocytes # 0.9 K/mcL (0.0-1.3); Monocytes % 8.1 %; Neutrophils # 8.2 K/mcL (1.6-8.9); Platelet Count 357 K/mcL (140-400); Red Blood Count 3.39 M/mcL (3.82-4.97); Red Cell Distribution Width 13.4 % (11.5-14.5)
[2017-08-21 03:48] LABS: BUN/Creatinine Ratio 35 (6-26); Blood Urea Nitrogen 22 mg/dL (7-20); Calcium 8.8 mg/dL (8.6-10.8); Carbon Dioxide 26 mEq/L (19-29); Chloride 109 mEq/L (98-109); Glucose 106 mg/dL (70-99); Magnesium 2.2 mg/dL (1.6-2.6); Osmolality,Calculated 302 (280-300); Phosphorous 1.9 mg/dL (2.3-4.7); Potassium 2.7 mEq/L (3.5-4.5); Sodium 144 mEq/L (136-145); eGFR For African Americans > 60 (> 60); eGFR For Non-African Americans > 60 (> 60)
[2017-08-21] MEDS: *HR* Heparin 5,000 UNIT/ML VIAL SQ SCH ×2 (05:40→17:22)
[2017-08-21] MEDS: *HR* Morphine 2 MG/ML SYRINGE IVP PRN ×4 (05:45→22:40)
[2017-08-21] MEDS: Pantoprazole 40 MG VIAL IVP SCH (08:05)
--- NOTE | 2017-08-21 10:14 | General Surgery Progress Note ---
<Baldev Hennessy - Last Filed: 08/21/17 13:55> Date of Encounter: 08/21/17 Time of Encounter: 10:12 - Assessment and Plan (1) Ileus following gastrointestinal surgery Current Visit: Yes Status: Acute - Status post low anterior resection for rectal prolapse and subsequently developed ileus. She was discharged on Tuesday - Patient denies any symptoms of pain, nausea, vomiting. She states she has had 2 bowel movements without evidence of blood - Nasogastric tube draining 500 since midnight, yesterday of 2500 mL. Will clamp NG tube today and monitor. - Continue NPO except for ice chips. Possible advance to clears tomorrow. - Will Obtain abdominal Xray to test for NG tip placement given large amount of NG output previously. - Continue supportive care and bowel rest (2) Hypokalemia Current Visit: Yes Status: Acute Potassium of 2.7 on most recent lab draws,. Will give 80 mEq today to replace and monitor. - Magnesium of 2.2 (3) Elevated troponin Current Visit: Yes Status: Acute Troponin 0.07 yesterday, has down trended to 0.05 today - Cardiology has been consulted and are following, appreciate recommendations - State that is most likely due to demand ischemia, but will follow - No complaints of chest pain currently (4) DVT prophylaxis Current Visit: No Status: Acute - Heparin 5000 units every 12 hours Subjective Patient reports: no new complaints, feels better, tolerating liquids well (Ice chips), flatus, no bowel movement Narrative: Patient was seen and examined at bedside this morning. She states that she is doing about the same as yesterday. She is tolerating her ice chips and popsicles without any complaints. She states that her stomach has been making noises, she is passing gas but has not had a bowel movement yet today. She states her nasogastric tube output has significantly decreased. She denies any symptoms of nausea, vomiting. Objective Vital Signs - Last 8 Hours Temp Pulse Resp BP Pulse Ox 08/21/17 07:32 98.5 F 92 18 144/79 93 08/21/17 05:37 86 18 142/80 95 Intake and Output 08/20/17 08/21/17 08/21/17 23:59 07:59 15:59 Intake Total 0 / 0 1000 / 1000 Output Total 1600 / 1600 500 / 500 Balance -1600 / -1600 500 / 500 Intake: IV Fluids 1000 / 1000 0.9 % Sodium Chloride 1,000 ML 1000 / 1000 @ 70 mls/hr IVC .[id number] [facility] Rx #:[id number] Oral 0 / 0 Output: Gastric Drainage 1600 / 1600 500 / 500 Right Nare 800 / 800 Other: Meal Dinner Percent of Meal Consumed 0% # Voids 1 Weight 62.596 kg Blood Glucose* 103 114 - General physical appearance well developed, well nourished, no distress - Respiratory normal expansion, normal respiratory effort, clear to auscultation - Cardiovascular Cardiovascular exam: Present: RRR, no murmurs/rubs/gallops - Abdomen Abdomen: Present: bowel sounds present, soft, tender Abdominal Tenderness: LLQ, suprapubic - Incision Incision: Present: clean and dry, intact - Labs 08/21/17 03:06 08/21/17 03:06 Diabetes panel 08/21/17 Range/Units 03:06 Sodium 144 (136-145) mEq/L Potassium 2.7 L (3.5-4.5) mEq/L Chloride 109 (98-109) mEq/L Carbon Dioxide 26 (19-29) mEq/L BUN 22 H (7-20) mg/dL Creatinine 0.63 (0.57-1.11) mg/dL Glucose 106 H (70-99) mg/dL Calcium 8.8 (8.6-10.8) mg/dL Calcium panel 08/21/17 Range/Units 03:06 Calcium 8.8 (8.6-10.8) mg/dL Phosphorus 1.9 L (2.3-4.7) mg/dL Pituitary panel 08/21/17 Range/Units 03:06 Sodium 144 (136-145) mEq/L Potassium 2.7 L (3.5-4.5) mEq/L Chloride 109 (98-109) mEq/L Carbon Dioxide 26 (19-29) mEq/L BUN 22 H (7-20) mg/dL Creatinine 0.63 (0.57-1.11) mg/dL Glucose 106 H (70-99) mg/dL Calcium 8.8 (8.6-10.8) mg/dL Adrenal panel 08/21/17 Range/Units 03:06 Sodium 144 (136-145) mEq/L Potassium 2.7 L (3.5-4.5) mEq/L Chloride 109 (98-109) mEq/L Carbon Dioxide 26 (19-29) mEq/L BUN 22 H (7-20) mg/dL Creatinine 0.63 (0.57-1.11) mg/dL Glucose 106 H (70-99) mg/dL Calcium 8.8 (8.6-10.8) mg/dL Consult Discharge Plan - Plan Referrals: Jose Luis Dunaway, [place] [Family Provider] - NONE,PCP [Primary Care Provider] - <Carlos Manuel Osorio - Last Filed: 08/22/17 06:43> Date of Encounter: 08/21/17 Objective Vital Signs - Last 8 Hours Temp Pulse Resp BP Pulse Ox 08/22/17 06:32 98.2 F 82 14 122/70 92 08/22/17 03:20 97.7 F 80 14 116/69 94 08/21/17 23:38 99.5 F 89 15 119/73 94 Intake and Output 08/21/17 08/21/17 08/22/17 15:59 23:59 07:59 Intake Total 300 / 300 1000 / 1000 1100 / 1100 Balance 300 / 300 1000 / 1000 1100 / 1100 Intake: IV Fluids 300 / 300 1000 / 1000 1100 / 1100 0.9 % Sodium Chloride 1,000 ML 1000 / 1000 1000 / 1000 @ 70 mls/hr IVC .[id number] [facility] Rx #:[id number] Ofirmev 1,000 mg/100 ml 1,000 100 / 100 mg In 100 ml @ 400 mls/hr IVPB Q6HR PRN Rx#:[id number] Potassium Chloride 10 mEq/100mL 300 / 300 10 meq In 100 ml @ 100 mls/hr IVPB Q1H [facility] Rx#:[id number] Other: Stool Size Moderate Stool Consistency liquid Stool Characteristics Normal for Patient Stool Color Green # Voids 0 0 # Urine Diapers 0 # Bowel Movements 1 # Bowel Movement Diapers 1 Weight 63.2 kg Blood Glucose* 122 113 113 Patient Weight 08/22/17 23:59 Weight 63.2 kg - Labs 08/22/17 02:31 08/22/17 02:31 Diabetes panel 08/22/17 Range/Units 02:31 Sodium 140 (136-145) mEq/L Potassium 3.2 L (3.5-4.5) mEq/L Chloride 105 (98-109) mEq/L Carbon Dioxide 26 (19-29) mEq/L BUN 15 (7-20) mg/dL Creatinine 0.63 (0.57-1.11) mg/dL Glucose 105 H (70-99) mg/dL Calcium 8.0 L (8.6-10.8) mg/dL Calcium panel 08/22/17 Range/Units 02:31 Calcium 8.0 L (8.6-10.8) mg/dL Phosphorus 1.1 L (2.3-4.7) mg/dL Pituitary panel 08/22/17 Range/Units 02:31 Sodium 140 (136-145) mEq/L Potassium 3.2 L (3.5-4.5) mEq/L Chloride 105 (98-109) mEq/L Carbon Dioxide 26 (19-29) mEq/L BUN 15 (7-20) mg/dL Creatinine 0.63 (0.57-1.11) mg/dL Glucose 105 H (70-99) mg/dL Calcium 8.0 L (8.6-10.8) mg/dL Adrenal panel 08/22/17 Range/Units 02:31 Sodium 140 (136-145) mEq/L Potassium 3.2 L (3.5-4.5) mEq/L Chloride 105 (98-109) mEq/L Carbon Dioxide 26 (19-29) mEq/L BUN 15 (7-20) mg/dL Creatinine 0.63 (0.57-1.11) mg/dL Glucose 105 H (70-99) mg/dL Calcium 8.0 L (8.6-10.8) mg/dL - Attending Attestation I examined this patient and my medical decision-making was reviewed with the Resident Physician. I agree with the documented findings, disposition and treatment plan as described except to the extent set forth below. I reviewed the above assessment and evaluation with the resident. Patient's NG tube still with positive output. Overall the abdomen has decreased in the patient admits to some flatus and bowel movements. Will obtain an abdominal x- ray to determine any evidence of dilation and to determine whether or not the NG tube is in proper position.
[2017-08-21] MEDS ORDERED: Potassium Chloride 40 MEQ, Lidocaine 1% 2 ML in D5% in Water 500 ML IVPB ONE (12:25)
[2017-08-21] MEDS: Ondansetron 4 MG/2 ML VIAL IVP PRN (14:24)
[2017-08-21] MEDS: *HR* LORazepam 2 MG/ML VIAL IVP PRN ×2 (14:30→20:49)
[2017-08-22] MEDS: Acetaminophen IV 1,000 MG/100 ML INFUS..BTL IVPB PRN ×2 (01:22→16:55)
--- NOTE | 2017-08-22 01:51 | Electrocardiograph Report ---
[address] [place], [place] [address] Test Date: 2017-08-19 Pat Name: Ada Lemos Department: 115 Room: [facility] Gender: F Dispatcher Refinery: LULU : 1945 Requested By: Evin Velasquez Order Number: [id number] Reading MD: Bernardino Jett MD Measurements Intervals [place] Rate: 92 P: 68 [place]: 123 QRS: 73 QRSD: 89 T: 32 QT: 385 QTc: 434 Interpretive Statements SINUS RHYTHM Electronically Signed On 08-22-2017 1:49:38 EST by Bernardino Jett MD
[2017-08-22] MEDS: 0.9 % Sodium Chloride 1,000 ML IVC SCH (03:06)
[2017-08-22 03:47] LABS: Basophils # 0.1 K/mcL (0.0-0.2); Basophils % 0.4 %; Eosinophils % 0.2 %; Hematocrit 30.2 % (35.3-44.9); Hemoglobin 9.7 g/dL (11.5-15.4); Immature Granulocytes % 2.4 % (0-4); Lymphocytes # 2.2 K/mcL (0.6-4.6); Lymphocytes % 13.4 %; Mean Corpuscular HGB Conc 32.1 g/dL (31.6-35.5); Mean Corpuscular Hemoglobin 30.9 pg (28.0-33.3); Mean Corpuscular Volume 96.2 fL (83.0-100.0); Mean Platelet Volume 11.7 fL (9.4-12.4); Monocytes # 1.4 K/mcL (0.0-1.3); Monocytes % 8.8 %; Neutrophils # 12.3 K/mcL (1.6-8.9); Nucleated Red Blood Cells 0.1 /100 WBC (0); Platelet Count 384 K/mcL (140-400); Red Blood Count 3.14 M/mcL (3.82-4.97); Red Cell Distribution Width 13.5 % (11.5-14.5); Segmented Neutrophils % 74.8 %
[2017-08-22 04:12] LABS: BUN/Creatinine Ratio 24 (6-26); Blood Urea Nitrogen 15 mg/dL (7-20); Carbon Dioxide 26 mEq/L (19-29); Chloride 105 mEq/L (98-109); Glucose 105 mg/dL (70-99); Magnesium 1.7 mg/dL (1.6-2.6); Osmolality,Calculated 291 (280-300); Phosphorous 1.1 mg/dL (2.3-4.7); Potassium 3.2 mEq/L (3.5-4.5); Sodium 140 mEq/L (136-145); eGFR For African Americans > 60 (> 60); eGFR For Non-African Americans > 60 (> 60)
[2017-08-22] MEDS: *HR* Heparin 5,000 UNIT/ML VIAL SQ SCH (05:24)
[2017-08-22] MEDS: Pantoprazole 40 MG VIAL IVP SCH (07:53)
[2017-08-22] MEDS: *HR* Morphine 2 MG/ML SYRINGE IVP PRN ×3 (07:58→20:15)
[2017-08-22] MEDS ORDERED: Potassium Chloride 40 MEQ, Lidocaine 1% 2 ML in D5% in Water 500 ML IVPB ONE (08:59)
[2017-08-22] MEDS ORDERED: Potassium Phosphate 44 MEQ in 0.9 % Sodium Chloride 250 ML IVPB ONE (09:02)
--- NOTE | 2017-08-22 09:03 | General Surgery Progress Note ---
Addendum entered and electronically signed by Mary Jo Varma CNP 08/22/17 12: 07: No clear etiology for leukocytosis without bandemia. Will continue to monitor. Repeat am labs, UA and BC negative Original Note: <Mary Jo Varma - Last Filed: 08/22/17 10:17> Date of Encounter: 08/22/17 Time of Encounter: 09:03 - Assessment and Plan (1) Ileus following gastrointestinal surgery Current Visit: Yes Status: Acute Etiology unknown given Blood cultures negative. UA negative. DVT screening positive for chronic LE DVT. TNI elevated at outlying facility (likely supply demand NSTEMI). She does take chronic opioids for Crohn's and rheumatoid arthritis. She reports frequent and chronic constipation for which she was taking Metamucil. Because she states that MiraLAX makes her feel like she's going to vomit. Metamucil could have contributed to a stool obstruction. Abdominal exam is benign. - Status post low anterior resection for rectal prolapse and subsequently developed ileus. She was discharged on Tuesday and readmitted Sunday 08/19 - Currently Patient denies any symptoms of pain, nausea, vomiting. She states she has had 2 bowel movements without evidence of blood - D/c NG; add limited trial CLD with Ensure clear protein supplement. -Out of bed at least TID with assistance. Pt/OT for mobilization and discharge planning. -Replace electrolytes as indicated for bowel function. Replaced potassium, phosphorus, and magnesium today. -Would suggest other methods of treating chronic opioid constipation such as daily stool softener and the use of an opioid induced constipation medications such asnaloxegol (Movantik), methylnaltrexone (Relistor), lubiprostone (Amitiza) . Refrain from using metamucil. (2) Therapeutic opioid-induced constipation (OIC) Current Visit: Yes Status: Acute Likely contributory to ileus. Would suggest other methods of treating chronic opioid constipation such as twice daily stool softener and the use of an opioid induced constipation medications such asnaloxegol (Movantik), methylnaltrexone (Relistor), lubiprostone (Amitiza). Refrain from using metamucil. (3) Electrolyte imbalance Current Visit: Yes Status: Acute See above. Repeat a.m. labs. (4) Elevated troponin Current Visit: Yes Status: Acute Management Per cardiology; spoke with Margarita London CNP to notify cardiology of d/c ;d NG tube per Dr. Guo note on 08/19/2017. Will defer cardiovascular management and recommendations for elevated TNI, h/o CHF, and AC recommendations in the setting of chronic DVT to cardiology, OK from a surgical standpoint to AC patient if indicated. (5) Chronic deep vein thrombosis (DVT) of right lower extremity Current Visit: Yes Status: Acute Per DVT ultrasound 08/19/2017 Pt POSITIVE for DVT right lower extremity, thrombus noted in popliteal and peroneal veins NEGATIVE for DVT of left lower extremity. Findings communicated with pt RN Will defer AC recommendations to cardiology pending work-up for elevated TNI. Qualifiers: Affected thrombotic vein of extremity: popliteal Qualified Code(s): I82.531 - Chronic embolism and thrombosis of right popliteal vein (6) History of CHF (congestive heart failure) Current Visit: Yes Status: Acute Will defer management to cardiology (7) DVT prophylaxis Current Visit: Yes Status: Acute Heparin injections 5000 units PID. Subjective Patient reports: no new complaints, feels better, voiding w/o difficulty, flatus , bowel movement, afebrile Narrative: Ms. Lemos states, "I'm so hungry and thirsty. I feel so much better than when I was discharged before." She denies n/v/abd pain and requests that NG be "pulled out." Objective Vital Signs - Last 8 Hours Temp Pulse Resp BP Pulse Ox 08/22/17 08:59 92 08/22/17 06:32 98.2 F 82 14 122/70 92 08/22/17 03:20 97.7 F 80 14 116/69 94 Intake and Output 08/21/17 08/22/17 08/22/17 23:59 07:59 15:59 Intake Total 1000 / 1000 1100 / 1100 Balance 1000 / 1000 1100 / 1100 Intake: IV Fluids 1000 / 1000 1100 / 1100 0.9 % Sodium Chloride 1,000 ML 1000 / 1000 1000 / 1000 @ 70 mls/hr IVC .[id number] [facility] Rx #:[id number] Ofirmev 1,000 mg/100 ml 1,000 100 / 100 mg In 100 ml @ 400 mls/hr IVPB Q6HR PRN Rx#:[id number] Other: Stool Size Moderate Stool Consistency liquid Stool Characteristics Normal for Patient Stool Color Green # Voids 0 0 # Urine Diapers 0 # Bowel Movements 1 # Bowel Movement Diapers 1 Weight 63.2 kg Blood Glucose* 113 113 Patient Weight 08/22/17 23:59 Weight 63.2 kg - General physical appearance no distress, no pain - Eyes normal ocular movement - ENT atraumatic, normocephalic - Neck Neck exam: trachea midline, no venous distension - Respiratory normal expansion, normal respiratory effort, clear to auscultation - Cardiovascular Cardiovascular exam: Present: RRR, murmurs - Abdomen Abdomen: Present: bowel sounds present, soft, non tender - Incision Incision: Present: clean and dry, intact - Integumentary no rash, no growths - Neurologic normal coordination, normal sensation - Musculoskeletal normal posture - Psychiatric oriented to time, oriented to person, oriented to place, speech is normal, memory intact - Labs 08/22/17 02:31 08/22/17 02:31 Diabetes panel 08/22/17 Range/Units 02:31 Sodium 140 (136-145) mEq/L Potassium 3.2 L (3.5-4.5) mEq/L Chloride 105 (98-109) mEq/L Carbon Dioxide 26 (19-29) mEq/L BUN 15 (7-20) mg/dL Creatinine 0.63 (0.57-1.11) mg/dL Glucose 105 H (70-99) mg/dL Calcium 8.0 L (8.6-10.8) mg/dL Calcium panel 08/22/17 Range/Units 02:31 Calcium 8.0 L (8.6-10.8) mg/dL Phosphorus 1.1 L (2.3-4.7) mg/dL Pituitary panel 08/22/17 Range/Units 02:31 Sodium 140 (136-145) mEq/L Potassium 3.2 L (3.5-4.5) mEq/L Chloride 105 (98-109) mEq/L Carbon Dioxide 26 (19-29) mEq/L BUN 15 (7-20) mg/dL Creatinine 0.63 (0.57-1.11) mg/dL Glucose 105 H (70-99) mg/dL Calcium 8.0 L (8.6-10.8) mg/dL Adrenal panel 08/22/17 Range/Units 02:31 Sodium 140 (136-145) mEq/L Potassium 3.2 L (3.5-4.5) mEq/L Chloride 105 (98-109) mEq/L Carbon Dioxide 26 (19-29) mEq/L BUN 15 (7-20) mg/dL Creatinine 0.63 (0.57-1.11) mg/dL Glucose 105 H (70-99) mg/dL Calcium 8.0 L (8.6-10.8) mg/dL Consult Discharge Plan - Plan Additional Instructions: 1. No pushing, pulling, or lifting greater than 15 lbs for four weeks. 2. You may shower beginning today, but no tub baths, soaking, or swimming for 2 weeks. 3. Take ibuprofen every 8 hours if needed for discomfort. If this does not relieve the discomfort you may take oxycodone. 4. Take narcotics as directed. Do not take more narcotics then directed and do not share your narcotics with any other person. Do not drink alcohol while on narcotics. 5. Take stool softeners (Colace) or a water based laxative (Miralax) while taking narcotics. You may hold for loose stools. 6. Report any fevers greater than 100.5F, increase abdominal discomfort, drainage that looks like pus, increased redness or pain at the surgical site, or any vomiting. 7. Report any pain in the calves, shortness of breath, or rapid heartbeat. 8. Follow-up in the office as directed. 9. If you were prescribed antibiotics, do not stop them without talking to your provider Referrals: Evin Velasquez DO [Partnered Physician] - 08/29/17 9:45 am Jose Luis Dunaway CNP [Family Provider] - 08/30/17 1:15 pm Vannessa London CNP [Advanced Practice Nurse] - (office will call patient at home with appointment date and time) Prescriptions: Aspirin Enteric Coated [Aspirin EC] 81 mg PO DAILY #20 tab Atorvastatin [Lipitor] 40 mg PO HS #20 tablet Metoprolol [Lopressor] 12.5 mg PO BID #40 tablet Rivaroxaban [Xarelto] 1 dose PO AD 30 Days #1 pack <Carlos Manuel Osorio - Last Filed: 08/24/17 14:13> Date of Encounter: 08/22/17 Objective Vital Signs - Last 8 Hours Temp Pulse Resp BP Pulse Ox 08/24/17 11:46 97 F L 68 16 111/78 93 08/24/17 09:00 91 08/24/17 07:30 97.5 F L 76 16 106/67 91 Intake and Output 08/23/17 08/24/17 08/24/17 23:59 07:59 15:59 Intake Total 240 / 240 237 / 237 Output Total 0 / 0 200 / 200 Balance 240 / 240 37 / 37 Intake: Oral 240 / 240 237 / 237 Output: Urine 0 / 0 200 / 200 Other: Meal Dinner Percent of Meal Consumed 35% Stool Size Smear Moderate Stool Consistency loose liquid Stool Color Green Brown # Voids 1 # Urine Diapers 2 Weight 64.9 kg Blood Glucose* 97 Patient Weight 08/24/17 23:59 Weight 64.9 kg - Labs 08/23/17 05:55 08/24/17 03:21 Diabetes panel 08/24/17 Range/Units 03:21 Sodium 137 (136-145) mEq/L Potassium 4.0 (3.5-4.5) mEq/L Chloride 101 (98-109) mEq/L Carbon Dioxide 27 (19-29) mEq/L BUN 5 L (7-20) mg/dL Creatinine 0.60 (0.57-1.11) mg/dL Glucose 101 H (70-99) mg/dL Calcium 8.1 L (8.6-10.8) mg/dL Calcium panel 08/24/17 Range/Units 03:21 Calcium 8.1 L (8.6-10.8) mg/dL Phosphorus 4.3 D (2.3-4.7) mg/dL Pituitary panel 08/24/17 Range/Units 03:21 Sodium 137 (136-145) mEq/L Potassium 4.0 (3.5-4.5) mEq/L Chloride 101 (98-109) mEq/L Carbon Dioxide 27 (19-29) mEq/L BUN 5 L (7-20) mg/dL Creatinine 0.60 (0.57-1.11) mg/dL Glucose 101 H (70-99) mg/dL Calcium 8.1 L (8.6-10.8) mg/dL Adrenal panel 08/24/17 Range/Units 03:21 Sodium 137 (136-145) mEq/L Potassium 4.0 (3.5-4.5) mEq/L Chloride 101 (98-109) mEq/L Carbon Dioxide 27 (19-29) mEq/L BUN 5 L (7-20) mg/dL Creatinine 0.60 (0.57-1.11) mg/dL Glucose 101 H (70-99) mg/dL Calcium 8.1 L (8.6-10.8) mg/dL
[2017-08-22] MEDS: Metoclopramide 10 MG/2 ML VIAL IVP SCH ×2 (11:02→16:56)
[2017-08-22] MEDS: *HR* LORazepam 2 MG/ML VIAL IVP PRN (11:44)
--- NOTE | 2017-08-22 13:47 | Cardiology Progress Note ---
Date of Encounter: 08/22/17 Time of Encounter: 13:00 Assessment and Plan (1) Ileus following gastrointestinal surgery Current Visit: Yes Status: Acute Per cardiology: -Ileus after abdominal surgery. -Management per surgical services. (2) Elevated troponin Current Visit: Yes Status: Acute Per cardiology: -Troponins 0.07, 0.05. -Troponinf flat and adynamic in the setting of recent abdominal surgery, ileus. -Denies chest pain. -ECG with no acute ischemic changes. -Previous TTE 04/2017 with LVEf 55-60%, mild concentric LVH, mild MR, trace TR, -Patient denies history of CAD, a.fib. Reports she has been told she has CHF previously. Previously saw at [facility], however states no work up was done at that time. -Of note, reported chronic DVT, not a primary cardiac issue. DVT anticoagulation management per primary team/hospitalist consult. -Will obtain limited TTE. -Further recommendations pending TTE. -Will start statin, beta clay. Will start ASA, of note reported allergy to mobin and ibuprofen, however patient states has taken ASA prior with no reaction. Discussion w patient/family: The assessment and plan as outlined above was discussed with the patient and/or family members who expressed understanding and agreement. All questions were answered. Thank you for involving us in the care of your patient. Please call with any questions. Discussed and reviewed with . Subjective Principal diagnosis: ileus Interval history: Patient states she feels better today. Denies chest pain. Objective Vital Signs, Last 4 Hours Temp Pulse Resp BP Pulse Ox 08/22/17 10:45 97.6 F 84 14 132/71 92 General: Conversant, No Apparent Distress HEENT: Atraumatic, Normocephaly, Mucus Membranes Moist Neck: No JVD, Normal carotid pulses Cardiac: Reg Rate and Rhythm, Normal S1 and S2, No Murmur Lungs: Normal Breath Sounds, No Wheeze, Rales, Rhonchi Neuro: Alert and responsive, No focal deficits noted Abdomen: Soft, Other (Tender to palpation. ) Skin: No rashes noted on visualized skin Musculoskeletal: No Chest Wall Tenderness Extremities: No Clubbing, No Cyanosis, No Edema, Normal Pulses Results 08/22/17 02:31 08/22/17 02:31 Lab Results Active Medications Alprazolam (Xanax) 1 mg PO BID [facility] PRN Reason: Protocol Stop: 02/21/18 21:01 Docusate Sodium (Colace) 100 mg PO BID [facility] PRN Reason: Protocol Stop: 02/21/18 10:16 Last Admin: 08/22/17 11:02 Dose: 100 mg Duloxetine HCl (Cymbalta) 60 mg PO DAILY [facility] Stop: 02/22/18 09:01 Heparin Sodium (Porcine) (Heparin) 5,000 unit SQ Q12HCO [facility] Stop: 02/18/18 18:01 Last Admin: 08/22/17 05:24 Dose: 5,000 unit Sodium Chloride (0.9 % Sodium Chloride) 1,000 mls @ 70 mls/hr IVC .[id number] [facility] Stop: 02/18/18 09:16 Last Admin: 08/22/17 03:06 Dose: 70 mls/hr Acetaminophen (Ofirmev 1,000 Mg/100 Ml) 1,000 mg in 100 mls @ 400 mls/hr IVPB Q6HR PRN PRN Reason: SEE NOTE Stop: 02/18/18 18:07 Last Infusion: 08/22/17 01:58 Dose: Infused Magnesium Sulfate (Magnesium Sulfate Premix 2gm/50ml) 2 gm in 50 mls @ 50 mls/ hr IVPB Q5H [facility] Stop: 02/21/18 09:01 Last Admin: 08/22/17 13:02 Dose: 50 mls/hr Potassium Phosphate 44 meq/ (Sodium Chloride) 260 mls @ 40 mls/hr IVPB ONCE ONE Stop: 08/22/17 15:31 Levothyroxine Sodium (Levothyroxine Sodium) 137 mcg PO 0630 [facility] Stop: 02/22/18 06:31 Lorazepam (Ativan) 0.5 mg IVP Q6HR PRN PRN Reason: Anxiety Stop: 02/19/18 13:43 Last Admin: 08/22/17 11:44 Dose: 0.5 mg Metoclopramide HCl (Reglan) 10 mg IVP Q6HR [facility] Stop: 02/21/18 12:01 Last Admin: 08/22/17 11:02 Dose: 10 mg Morphine Sulfate (Morphine Sulfate) 2 mg IVP Q4HR PRN PRN Reason: Pain Stop: 02/18/18 09:12 Last Admin: 08/22/17 07:58 Dose: 2 mg Multi-Ingredient Mucositis [place] (Chloraseptic) 2 spray MM QID PRN PRN Reason: Sore Throat Stop: 02/18/18 22:36 Non-Formulary Medication (Oxycodone Hcl [Oxycodone Hcl]) 0.5 tab PO BID [facility] Stop: 02/21/18 21:01 Ondansetron HCl (Zofran) 4 mg IVP Q6HR PRN PRN Reason: Nausea And Vomiting Stop: 02/18/18 09:12 Last Admin: 08/21/17 14:24 Dose: 4 mg Pantoprazole Sodium (Protonix) 40 mg IVP DAILY [facility] Stop: 02/19/18 09:01 Last Admin: 08/22/17 07:53 Dose: 40 mg Pharmacy Profile Note (Patient Taking Own Medication) 0 each PO DAILY [facility] Stop: 02/22/18 09:01 - Imaging and Cardiology Chest Xray: report reviewed Echo: pending, report reviewed - EKG Interpretation EKG results cardiology: personally reviewed (ECG with SR, HR 92.), other ( Telemetry reviewed with average HR previous 12 hours noted to be 80, sinus rhythm. PVCs and PACs noted.) Consult Discharge Plan - Plan Referrals: Jose Luis Dunaway, [place] [Family Provider] - NONE,PCP [Primary Care Provider] -
--- NOTE | 2017-08-22 15:02 | Event Note ---
Date of Encounter: 08/22/17 Time of Encounter: 15:01 Will initiate therapeutic weight based lovenox for chronic DVT in the RLE.
--- NOTE | 2017-08-22 15:09 | Electrocardiograph Report ---
[address] [place], [place] [address] Test Date: 2017-08-21 Pat Name: Ada Lemos Department: 111 Room: [facility] Gender: F Ged Tutor: : 1945 Requested By: Evin Velasquez Order Number: [id number] Reading MD: Evens Christine Measurements Intervals [place] Rate: 95 P: 60 ND: 144 QRS: 21 QRSD: 96 T: 32 QT: 291 QTc: 344 Interpretive Statements SINUS RHYTHM NONSPECIFIC T-WAVE ABNORMALITY Electronically Signed On 08-22-2017 15:07:56 EST by Evens Christine
[2017-08-22] MEDS: Aspirin Enteric Coated 81 MG Tablet PO SCH (16:18)
[2017-08-22] MEDS: *HR* Enoxaparin 60 MG/0.6 ML SYRINGE SQ SCH (16:18)
[2017-08-22] MEDS: ALPRAZolam 1 MG TABLET PO SCH (20:14)
[2017-08-22] MEDS ORDERED: OXYCODONE HCL PO SCH (21:00)
[2017-08-23] MEDS: Metoclopramide 10 MG/2 ML VIAL IVP SCH ×4 (01:52→18:51)
[2017-08-23 06:13] LABS: Hemoglobin 10.2 g/dL (11.5-15.4); Lymphocytes # 2.3 K/mcL (0.6-4.6); Mean Corpuscular HGB Conc 31.9 g/dL (31.6-35.5); Mean Corpuscular Hemoglobin 30.5 pg (28.0-33.3); Mean Corpuscular Volume 95.8 fL (83.0-100.0); Mean Platelet Volume 11.2 fL (9.4-12.4); Nucleated Red Blood Cells 0.3 /100 WBC (0); Platelet Count 354 K/mcL (140-400); Red Blood Count 3.34 M/mcL (3.82-4.97); Red Cell Distribution Width 13.7 % (11.5-14.5)
[2017-08-23] MEDS: *HR* Enoxaparin 60 MG/0.6 ML SYRINGE SQ SCH ×2 (06:15→18:51)
[2017-08-23] MEDS: *HR* Morphine 2 MG/ML SYRINGE IVP PRN ×2 (06:25→13:46)
[2017-08-23 06:31] LABS: BUN/Creatinine Ratio 12 (6-26); Blood Urea Nitrogen 7 mg/dL (7-20); Carbon Dioxide 25 mEq/L (19-29); Chloride 104 mEq/L (98-109); Glucose 103 mg/dL (70-99); Magnesium 2.7 mg/dL (1.6-2.6); Osmolality,Calculated 280 (280-300); Phosphorous 1.8 mg/dL (2.3-4.7); Potassium 3.3 mEq/L (3.5-4.5); Sodium 136 mEq/L (136-145); eGFR For African Americans > 60 (> 60); eGFR For Non-African Americans > 60 (> 60)
[2017-08-23 06:45] LABS: Monocytes # 0.9 K/mcL (0.0-1.3); Neutrophils # 8.4 K/mcL (1.6-8.9); Platelet Estimate Normal (Normal)
[2017-08-23] MEDS: 0.9 % Sodium Chloride 1,000 ML IVC SCH ×2 (08:46→08:53)
[2017-08-23] MEDS: Aspirin Enteric Coated 81 MG Tablet PO SCH (08:49)
[2017-08-23] MEDS: ALPRAZolam 1 MG TABLET PO SCH (08:49)
[2017-08-23] MEDS: Pantoprazole 40 MG VIAL IVP SCH (08:52)
[2017-08-23] MEDS ORDERED: (Ezetimibe [Ezetimibe] 10 MG) PO SCH (09:00)
--- NOTE | 2017-08-23 13:42 | General Surgery Progress Note ---
Date of Encounter: 08/23/17 Time of Encounter: 13:30 - Assessment and Plan (1) Ileus following gastrointestinal surgery Current Visit: Yes Status: Acute - Status post low anterior resection for rectal prolapse and subsequently developed ileus. She was discharged on Tuesday08/15/17 and readmitted Tuesday08/19/17 - Currently Patient denies any symptoms of pain, nausea, vomiting. - She is passing flatus regularly and passing small amount of liquid stool. Reports better control with continence. Continuing Kegel exercises. - Advance to soft diet with protein supplements TID with trays -Out of bed at least TID with assistance. Pt/OT for mobilization and discharge planning. -Replace electrolytes as indicated for bowel function. Replaced potassium, phosphorus. -Would suggest other methods of treating chronic opioid constipation such as daily stool softener and the use of an opioid induced constipation medications such asnaloxegol (Movantik), methylnaltrexone (Relistor), lubiprostone (Amitiza) . - Remove soraya today (2) Rheumatoid arthritis Current Visit: No Status: Chronic Patient takes chronic opioids for management of her RA due to failure of traditional therapies She has a pain management doctor in [place], [place] who follows her regularly Qualifiers: Rheumatoid arthritis location: multiple sites Rheumatoid factor presence: unspecified presence Qualified Code(s): M06.9 - Rheumatoid arthritis, unspecified (3) Elevated troponin Current Visit: Yes Status: Acute Cardiology consulted No further testing indicated Recommended statin, ASA and beta clay therapy (4) Chronic deep vein thrombosis (DVT) of right lower extremity Current Visit: Yes Status: Acute Therapeutic lovenox started 08/22/17 Qualifiers: Affected thrombotic vein of extremity: popliteal Qualified Code(s): I82.531 - Chronic embolism and thrombosis of right popliteal vein (5) History of CHF (congestive heart failure) Current Visit: Yes Status: Chronic No further testing indicated from a cardiology standpoint Continue ASA, statin and beta clay therapy F/U with cardiology as outpatient (6) Therapeutic opioid-induced constipation (OIC) Current Visit: Yes Status: Acute Would suggest other methods of treating chronic opioid constipation such as daily stool softener and the use of an opioid induced constipation medications such asnaloxegol (Movantik), methylnaltrexone (Relistor), lubiprostone (Amitiza) . (7) DVT prophylaxis Current Visit: Yes Status: Acute Currently on therapeutic lovenox dosing Subjective Patient reports: no new complaints, feels better, tolerating liquids well, voiding w/o difficulty, flatus, bowel movement, diarrhea, afebrile Objective Vital Signs - Last 8 Hours Temp Pulse Resp BP Pulse Ox 08/23/17 11:27 97.9 F 72 14 124/77 93 08/23/17 06:20 98.2 F 79 14 129/73 91 Intake and Output 08/22/17 08/23/17 08/23/17 23:59 07:59 15:59 Intake Total 1680 / 1680 50 / 50 680 / 680 Output Total 150 / 150 200 / 200 Balance 1680 / 1680 -100 / -100 480 / 480 Intake: IV Fluids 1000 / 1000 50 / 50 0.9 % Sodium Chloride 1,000 ML 1000 / 1000 @ 70 mls/hr IVC .[id number] [facility] Rx #:[id number] Magnesium Sulfate Premix 2gm/ 50 / 50 50mL 2 gm In 50 ml @ 50 mls/hr IVPB Q5H [facility] Rx#:[id number] Oral 680 / 680 0 / 0 680 / 680 Output: Urine 150 / 150 200 / 200 Other: Meal Dinner Breakfast Percent of Meal Consumed 0% 0% Stool Size Smear Smear Stool Consistency liquid loose liquid Stool Color Yellow Yellow Green Green # Voids 0 # Urine Diapers 1 # Bowel Movements 1 1 # Bowel Movement Diapers 1 Weight 64.4 kg Blood Glucose* 88 100 102 Patient Weight 08/23/17 23:59 Weight 64.4 kg - General physical appearance well developed, well nourished, no distress - Eyes normal ocular movement - ENT normal mucosa, atraumatic, normocephalic - Neck Neck exam: trachea midline - Respiratory normal respiratory effort, clear to auscultation - Cardiovascular Cardiovascular exam: Present: RRR - Abdomen Abdomen: Present: bowel sounds present, soft, tender (Expected incisional tenderness (improving)) - Incision Incision: Present: clean and dry, intact - Neurologic CN 2-12 grossly intact - Psychiatric oriented to time, oriented to person, oriented to place, speech is normal, memory intact - Labs 08/23/17 05:55 08/23/17 05:55 Diabetes panel 08/23/17 Range/Units 05:55 Sodium 136 (136-145) mEq/L Potassium 3.3 L (3.5-4.5) mEq/L Chloride 104 (98-109) mEq/L Carbon Dioxide 25 (19-29) mEq/L BUN 7 (7-20) mg/dL Creatinine 0.58 (0.57-1.11) mg/dL Glucose 103 H (70-99) mg/dL Calcium 8.0 L (8.6-10.8) mg/dL Calcium panel 08/23/17 Range/Units 05:55 Calcium 8.0 L (8.6-10.8) mg/dL Phosphorus 1.8 L D (2.3-4.7) mg/dL Pituitary panel 08/23/17 Range/Units 05:55 Sodium 136 (136-145) mEq/L Potassium 3.3 L (3.5-4.5) mEq/L Chloride 104 (98-109) mEq/L Carbon Dioxide 25 (19-29) mEq/L BUN 7 (7-20) mg/dL Creatinine 0.58 (0.57-1.11) mg/dL Glucose 103 H (70-99) mg/dL Calcium 8.0 L (8.6-10.8) mg/dL Adrenal panel 08/23/17 Range/Units 05:55 Sodium 136 (136-145) mEq/L Potassium 3.3 L (3.5-4.5) mEq/L Chloride 104 (98-109) mEq/L Carbon Dioxide 25 (19-29) mEq/L BUN 7 (7-20) mg/dL Creatinine 0.58 (0.57-1.11) mg/dL Glucose 103 H (70-99) mg/dL Calcium 8.0 L (8.6-10.8) mg/dL Consult Discharge Plan - Plan Referrals: Jose Luis Dunaway, [employer] [Family Provider] - - Attending Attestation For this encounter, I have reviewed the TRANSPORTATION ATTENDANT or PA documentation, treatment plan, and medical decision making; and I have had face to face time with this patient.
--- NOTE | 2017-08-23 13:50 | Cardiology Progress Note ---
Date of Encounter: 08/23/17 Time of Encounter: 13:47 Assessment and Plan (1) Ileus following gastrointestinal surgery Current Visit: Yes Status: Acute Per cardiology: -Ileus after abdominal surgery. -Management per surgical services. (2) Elevated troponin Current Visit: Yes Status: Acute Per cardiology: -Troponins 0.07, 0.05. -Troponins flat and adynamic in the setting of recent abdominal surgery, ileus. -Denies chest pain. -ECG with no acute ischemic changes. -Previous TTE 04/2017 with LVEf 55-60%, mild concentric LVH, mild MR, trace TR. -Limited TTE this admission with LVEF 55%, all visualized wall segments with normal motion. -Patient denies history of CAD, a.fib. Reports she has been told she has CHF previously. Previously saw at [facility], however states no work up was done at that time. -On asa, statin, beta clay. -Cardiology will sign off and will follow in outpatient setting. Follow up set. Discussion w patient/family: The assessment and plan as outlined above was discussed with the patient and/or family members who expressed understanding and agreement. All questions were answered. Thank you for involving us in the care of your patient. Please call with any questions. Discussed and reviewed with . Subjective Principal diagnosis: ileus Interval history: Patient states she feels better today. Denies chest pain. Patient reports she will be able to eat solid foods today. Objective Vital Signs, Last 4 Hours Temp Pulse Resp BP Pulse Ox 08/23/17 11:27 97.9 F 72 14 124/77 93 General: Conversant, No Apparent Distress HEENT: Atraumatic, Normocephaly, Mucus Membranes Moist Neck: No JVD, Normal carotid pulses Cardiac: Reg Rate and Rhythm, Normal S1 and S2, No Murmur Lungs: Normal Breath Sounds, No Wheeze, Rales, Rhonchi Neuro: Alert and responsive, No focal deficits noted Abdomen: Soft, Non-Tender Skin: No rashes noted on visualized skin Musculoskeletal: No Chest Wall Tenderness Extremities: No Clubbing, No Cyanosis, No Edema, Normal Pulses Results 08/23/17 05:55 08/23/17 05:55 Lab Results Impressions Echocardiogram Limited Views 08/22/17 13:57 Impressions: Technically challenging study with off-axis imaging. LVEF 55%. Not all LV segments are well visualized. Normal right ventricular structure and function. Valves were not fully evaluated on this study. Left Ventricular Wall Motion: Rest Echo Findings The mid anterior septal, mid inferior lateral, basal anterior septal and basal inferior lateral abrams were not visualized. All other wall segments showed normal motion. Findings: Study Quality * Technically challenging exam - not all windows are well visualized. ECG Findings * Normal sinus rhythm. Left Ventricle * LVEF 55%. * Normal LV size and wall thickness. * Diastolic function not assessed. Right Ventricle * Normal right ventricular structure and function. Left Atrium * Normal left atrial size. Right Atrium * Normal right atrial size. Aortic Valve * Aortic valve not well visualized. * Suboptimal Doppler interrogation Mitral Valve * Normal mitral valve structure. * Suboptimal Doppler interrogation. Tricuspid Valve * Normal tricuspid valve structure. * Estimated RA pressure is 3 mmHg. Pulmonic Valve * Not well visualized. Aorta * Not well visualized. Pulmonary Artery * Pulmonary artery not well visualized. Pericardium * There is no pericardial effusion present. IVC * Normal IVC dimensions and inspiratory collapse. Interatrial Septum * Interatrial septum not well evaluated. Active Medications Alprazolam (Xanax) 1 mg PO BID YULISSA PRN Reason: Protocol Stop: 02/21/18 21:01 Last Admin: 08/23/17 08:49 Dose: 1 mg Aspirin (Aspirin Ec) 81 mg PO DAILY [facility] Stop: 02/21/18 14:46 Last Admin: 08/23/17 08:49 Dose: 81 mg Atorvastatin Calcium (Lipitor) 40 mg PO HS YULISSA Stop: 02/21/18 21:01 Last Admin: 08/22/17 20:15 Dose: 40 mg Docusate Sodium (Colace) 100 mg PO BID [facility] PRN Reason: Protocol Stop: 02/21/18 10:16 Last Admin: 08/23/17 08:52 Dose: Not Given Duloxetine HCl (Cymbalta) 60 mg PO DAILY YULISSA Stop: 02/22/18 09:01 Last Admin: 08/23/17 08:52 Dose: Not Given Enoxaparin Sodium (Lovenox) 60 mg 1 mg/kg (60 mg) SQ Q12HR YULISSA PRN Reason: Protocol Stop: 02/21/18 15:01 Last Admin: 08/23/17 06:15 Dose: 60 mg Sodium Chloride (0.9 % Sodium Chloride) 1,000 mls @ 70 mls/hr IVC .[id number] [facility] Stop: 02/18/18 09:16 Last Admin: 08/23/17 08:53 Dose: 70 mls/hr Acetaminophen (Ofirmev 1,000 Mg/100 Ml) 1,000 mg in 100 mls @ 400 mls/hr IVPB Q6HR PRN PRN Reason: SEE NOTE Stop: 02/18/18 18:07 Last Admin: 08/22/17 16:55 Dose: 400 mls/hr Magnesium Sulfate (Magnesium Sulfate Premix 2gm/50ml) 2 gm in 50 mls @ 50 mls/ hr IVPB Q5H [facility] Stop: 02/21/18 09:01 Last Admin: 08/23/17 06:14 Dose: 50 mls/hr Levothyroxine Sodium (Levothyroxine Sodium) 137 mcg PO 0630 [facility] Stop: 02/22/18 06:31 Last Admin: 08/23/17 06:14 Dose: 137 mcg Lorazepam (Ativan) 0.5 mg IVP Q6HR PRN PRN Reason: Anxiety Stop: 02/19/18 13:43 Last Admin: 08/22/17 11:44 Dose: 0.5 mg Metoclopramide HCl (Reglan) 10 mg IVP Q6HR [facility] Stop: 02/21/18 12:01 Last Admin: 08/23/17 12:32 Dose: 10 mg Metoprolol Tartrate (Lopressor) 12.5 mg PO BID [facility] Stop: 02/21/18 21:01 Last Admin: 08/23/17 08:50 Dose: 12.5 mg Morphine Sulfate (Morphine Sulfate) 2 mg IVP Q4HR PRN PRN Reason: Pain Stop: 02/18/18 09:12 Last Admin: 08/23/17 13:46 Dose: 2 mg Multi-Ingredient Mucositis [place] (Chloraseptic) 2 spray MM QID PRN PRN Reason: Sore Throat Stop: 02/18/18 22:36 Ondansetron HCl (Zofran) 4 mg IVP Q6HR PRN PRN Reason: Nausea And Vomiting Stop: 02/18/18 09:12 Last Admin: 08/21/17 14:24 Dose: 4 mg Pantoprazole Sodium (Protonix) 40 mg IVP DAILY [facility] Stop: 02/19/18 09:01 Last Admin: 08/23/17 08:52 Dose: 40 mg Pharmacy Profile Note (Patient Taking Own Medication) 0 each PO DAILY YULISSA Stop: 02/22/18 09:01 Last Admin: 08/23/17 08:52 Dose: Not Given Laboratory Tests 08/23/17 08/23/17 05:55 05:55 WBC 11.7 H Hgb 10.2 L Creatinine 0.58 - Imaging and Cardiology Chest Xray: report reviewed Echo: report reviewed - EKG Interpretation EKG results cardiology: other (Telemetry reviewed with average HR previous 12 hours noted to be 76, sinus rhythm. PVCs and PACs noted.) Consult Discharge Plan - Plan Referrals: Jose Luis Dunaway CNP [Family Provider] -
[2017-08-23] MEDS ORDERED: Potassium Phosphate 44 MEQ in 0.9 % Sodium Chloride 250 ML IVPB ONE (13:51)
[2017-08-23] MEDS: *HR* Morphine Sulfate SR (12 HR) 30 MG TABLET.ER PO SCH ×2 (15:44→21:17)
[2017-08-23] MEDS: ALPRAZolam 0.5 MG TABLET PO SCH ×2 (16:24→21:16)
[2017-08-23] MEDS: *HR* OxyCODONE Immed Rel 5 MG TABLET PO PRN (18:58)
[2017-08-24] MEDS: Metoclopramide 10 MG/2 ML VIAL IVP SCH ×5 (00:20→23:54)
[2017-08-24] MEDS: *HR* OxyCODONE Immed Rel 5 MG TABLET PO PRN ×2 (03:27→12:43)
[2017-08-24 03:58] LABS: BUN/Creatinine Ratio 8 (6-26); Calcium 8.1 mg/dL (8.6-10.8); Carbon Dioxide 27 mEq/L (19-29); Chloride 101 mEq/L (98-109); Glucose 101 mg/dL (70-99); Magnesium 2.1 mg/dL (1.6-2.6); Osmolality,Calculated 281 (280-300); Sodium 137 mEq/L (136-145); eGFR For African Americans > 60 (> 60); eGFR For Non-African Americans > 60 (> 60)
[2017-08-24 04:00] LABS: Blood Urea Nitrogen 5 mg/dL (7-20)
[2017-08-24 04:01] LABS: Phosphorous 4.3 mg/dL (2.3-4.7)
[2017-08-24] MEDS: *HR* Enoxaparin 60 MG/0.6 ML SYRINGE SQ SCH (06:05)
[2017-08-24] MEDS: ALPRAZolam 0.5 MG TABLET PO SCH ×3 (09:15→20:54)
[2017-08-24] MEDS: *HR* Morphine Sulfate SR (12 HR) 30 MG TABLET.ER PO SCH ×3 (09:15→23:54)
[2017-08-24] MEDS: Aspirin Enteric Coated 81 MG Tablet PO SCH (09:15)
--- NOTE | 2017-08-24 10:54 | Discharge Summary ---
Date of Encounter: 08/24/17 Time of Encounter: 10:49 - Discharge Diagnosis (1) Ileus following gastrointestinal surgery Priority: Primary Status: Acute (2) Hypokalemia Priority: Secondary Status: Acute (3) Elevated troponin Priority: Secondary Status: Acute (4) Chronic deep vein thrombosis (DVT) of right lower extremity Priority: Secondary Status: Chronic Qualifiers: Affected thrombotic vein of extremity: popliteal Qualified Code(s): I82.531 - Chronic embolism and thrombosis of right popliteal vein (5) DVT prophylaxis Priority: Secondary Status: Acute - Discharge Medications Prescriptions: Aspirin Enteric Coated [Aspirin EC] 81 mg PO DAILY #20 tab Atorvastatin [Lipitor] 40 mg PO HS #20 tablet Metoprolol [Lopressor] 12.5 mg PO BID #40 tablet Rivaroxaban [Xarelto] 1 dose PO AD 30 Days #1 pack Home Medications: ALPRAZolam [Xanax 1 MG Tablet] 1 mg PO BID 08/10/17 [History] Acetaminophen [Tylenol Arthritis] 650 mg PO Q8H PRN 08/10/17 [History] Alendronate Sodium 70 mg PO QWEEK 08/10/17 [History] Duloxetine HCl [Cymbalta] 60 mg PO DAILY 08/10/17 [History] Ezetimibe 10 mg PO DAILY 08/10/17 [History] Folic Acid 1 mg PO DAILY 08/10/17 [History] Furosemide [Lasix] 20 mg PO BID 08/10/17 [History] Levothyroxine Sodium 137 mcg PO 0630 08/10/17 [History] Loratadine [Claritin] 10 mg PO DAILY 08/10/17 [History] Morphine Sulfate SR (12 HR) [MS Contin] 30 mg PO TID 08/10/17 [History] Omeprazole [PriLOSEC] 20 mg PO BID 08/10/17 [History] Oxycodone HCl 10 mg PO QID PRN 08/10/17 [History] Potassium Chloride 10 meq PO BID 08/10/17 [History] Ibuprofen [Motrin] 800 mg PO Q8HR PRN #40 tablet 08/15/17 [Rx] Loperamide [Imodium] 2 mg PO Q2H PRN #60 capsule 08/15/17 [Rx] Psyllium Husk/Aspartame [Metamucil Fiber Singles Packet] 3.4 gm PO DAILY #30 powd.pack 08/15/17 [Rx] Budesonide/Formoterol 160/4.5 [Symbicort 160/4.5] 2 puff IH BIDR 08/19/17 [ History] Docusate [Colace] 100 mg PO TID 08/22/17 [History] Guaifenesin [Mucinex] 600 mg PO BID 08/22/17 [History] Pramipexole Di-HCl [Pramipexole Dihydrochloride] 0.5 mg PO DAILY 08/22/17 [ History] Aspirin Enteric Coated [Aspirin EC] 81 mg PO DAILY #20 tab 08/24/17 [Rx] Atorvastatin [Lipitor] 40 mg PO HS #20 tablet 08/24/17 [Rx] Metoprolol [Lopressor] 12.5 mg PO BID #40 tablet 08/24/17 [Rx] Rivaroxaban [Xarelto] 1 dose PO AD 30 Days #1 pack 08/24/17 [Rx] Allergies/Adverse Reactions: 3 Allergy/AdvReac Type Severity Reaction Status Date / Time baclofen AdvReac Headache Verified 08/10/17 19:26 clonazepam AdvReac See Verified 08/10/17 19:26 Comments Cyclobenzaprine AdvReac Gastrointestinal Verified 08/10/17 19:26 [From Flexeril] Upset gabapentin [From Neurontin] AdvReac Headache Verified 08/10/17 19:26 ibuprofen [From Motrin] AdvReac Chest Pain Verified 08/10/17 19:26 meloxicam [From Mobic] AdvReac See Verified 08/10/17 19:26 Comments methocarbamol AdvReac Gastrointestinal Verified 08/10/17 19:26 Upset methotrexate AdvReac See Verified 08/10/17 19:26 Comments naproxen [From Naprosyn] AdvReac See Verified 08/10/17 19:26 Comments Penicillins AdvReac Vomiting Verified 08/10/17 19:26 pregabalin [From Lyrica] AdvReac Headache Verified 08/10/17 19:26 Sulindac AdvReac Gastrointestinal Verified 08/10/17 19:26 Upset Tizanidine [From Zanaflex] AdvReac Headache Verified 08/10/17 19:26 General Surgery Exam Initial Vital Signs Pulse Ox 90 08/19/17 08:10 - General physical appearance well developed, well nourished, no distress - Respiratory normal expansion, normal respiratory effort, clear to auscultation - Cardiovascular Cardiovascular exam: Present: irregular rhythm, no murmurs/rubs/gallops - Abdomen Abdomen general surgery: Present: bowel sounds present, soft, non tender - Incision Incision: Present: clean and dry, intact, approximated. Absent: purulent, indurated, serous, serosanguinous Date of admission: 08/19/17 07:30 Primary care physician: PCP NONE Consults: 08/19/17 09:11 Consult to [employer] Mill Supervisor [CONS] Routine Reason for SW Consult: pt will need rehab 08/19/17 13:47 Consult to Cardiology [CONS] Stat Comment: Dr. Guo Consulting Provider: Cardiology Sravani Reason for Consult: Elevated TNI Time Notified: 13:30 Call Completed: Yes Discharging clinician: Baldev Hennessy Anticipated date of discharge: 08/24/17 - Patient Status Disposition: Home, Self-Care Condition: Fair Functional capacity at discharge: independent ambulation Overall status at discharge: patient is progressing back to baseline - Discharge Instructions Follow Up With: Evin Velasquez DO [Partnered Physician] - 08/29/17 9:45 am Jose Luis Dunaway CNP [Family Provider] - 08/30/17 1:15 pm Vannessa London CNP [Advanced Practice Nurse] - (office will call patient at home with appointment date and time) Additional Instructions: 1. No pushing, pulling, or lifting greater than 15 lbs for four weeks. 2. You may shower beginning today, but no tub baths, soaking, or swimming for 2 weeks. 3. Take ibuprofen every 8 hours if needed for discomfort. If this does not relieve the discomfort you may take oxycodone. 4. Take narcotics as directed. Do not take more narcotics then directed and do not share your narcotics with any other person. Do not drink alcohol while on narcotics. 5. Take stool softeners (Colace) or a water based laxative (Miralax) while taking narcotics. You may hold for loose stools. 6. Report any fevers greater than 100.5F, increase abdominal discomfort, drainage that looks like pus, increased redness or pain at the surgical site, or any vomiting. 7. Report any pain in the calves, shortness of breath, or rapid heartbeat. 8. Follow-up in the office as directed. 9. If you were prescribed antibiotics, do not stop them without talking to your provider - Diet and Activity Activity: increase activity as tolerated, resume usual activities as tolerated Diet: advance to your usual diet - Hospital Course Hospital course: Ms. Lemos is a 72 year old female who underwent low anterior resection for rectal prolapse on 08/11/17. She states that upon discharge, she was doing quite well having loose bowel movements however she was using Metamucil to thicken her bowel movements and subsequently over the next 2 days her bowel movements. Slow and she began to experience nausea and vomiting and she presented to the emergency room at [facility] was subsequently transferred to [facility] after CT scan. ET scan in the emergency department showed no acute process however a possible ileus. Upon presentation, patient was noted to have a heart rate of 103 which was regular and a mild fever 100.4. Labs were Significant For troponin 0.07. Cardiology was consulted this time and troponins are trended. Also significant for hypomagnesemia and hypokalemia during this admission. During course of hospital admission, patient gradually improved. She was given an NG tube hooked up to wall suction and given nothing by mouth diet for bowel rest. This relieved her symptoms. Troponins were trended and were adynamic. Cardiology saw and evaluated patient and obtained a echocardiogram showing an ejection fraction of 55%. They recommend starting the patient on aspirin, statin, beta clay and follow up with cardiology as an outpatient. Patient was also noted to have a chronic right sided DVT in her popliteal vein, she was started on Lovenox and transitioned to Xarelto as an outpatient. During course of hospital admission, patient's NG tube output decreased it was clamped, and she tolerated progressively advancing diets without complaints. NG tube was pulled and patient was started on soft mechanical diet. On day of discharge, patient was medically stable. Vital signs were within normal limits, lab results are back to baseline levels. She was having bowel movements and had no complaints of nausea, vomiting. She was instructed to follow-up with her primary care physician, surgeon, cardiology and to take all of her medication as prescribed. All for questions were answered. She will be discharged home in stable medical condition. - Time Spent with Patient Total time spent providing and/or coordinating discharge services: Labs on day of discharge: Labs from last 24 hours 08/24/17 08/23/17 08/23/17 03:21 19:23 11:32 Sodium 137 Potassium 4.0 Chloride 101 Carbon Dioxide 27 BUN 5 L Creatinine 0.60 Est GFR ( Amer) > 60 Est GFR (Non-Af Amer) > 60 BUN/Creatinine Ratio 8 Glucose 101 H POC Glucose 97 H 102 H Calculated Osmolality 281 Calcium 8.1 L Phosphorus 4.3 D Magnesium 2.1 08/23/17 05:41 Sodium Potassium Chloride Carbon Dioxide BUN Creatinine Est GFR ( Amer) Est GFR (Non-Af Amer) BUN/Creatinine Ratio Glucose POC Glucose 100 H Calculated Osmolality Calcium Phosphorus Magnesium Preliminary micro results at discharge 08/19/17 17:54 Blood Culture - Preliminary Peripheral Venipuncture No growth. 08/19/17 17:54 Blood Culture - Preliminary Peripheral Venipuncture No growth. - Impressions ITS Impressions Chest X-Ray 08/19/17 08:40 IMPRESSION: 1. Right infrahilar and left basilar platelike atelectasis. 2. Enteric catheter with side port below the GE junction. D/ / Gina Gutierrez MD / Gina Gutierrez MD Interpreting Provider: Gina Gutierrez MD Abdomen X-Ray 08/19/17 09:09 IMPRESSION: 1. Enteric catheter in satisfactory position. 2. Multiple dilated loops of small bowel measuring up to 4.6 cm in diameter. Findings may represent small bowel obstruction or ileus. Continued radiographic follow-up recommended The findings were sent to the Radiology Results Communication Center at 9:28 am on 08/19/2017to be communicated to a licensed caregiver. D/ / Gina Gutierrez MD / Gina Gutierrez MD Interpreting Provider: Gina Gutierrez MD Abdomen X-Ray 08/21/17 09:36 IMPRESSION: No evidence of small bowel obstruction at this time. Good position of the gastric tube D/ / Boo Chow MD / Boo Chow MD Interpreting Provider: Boo Chow MD Echocardiogram Limited Views 08/22/17 13:57 Impressions: Technically challenging study with off-axis imaging. LVEF 55%. Not all LV segments are well visualized. Normal right ventricular structure and function. Valves were not fully evaluated on this study. Left Ventricular Wall Motion: Rest Echo Findings The mid anterior septal, mid inferior lateral, basal anterior septal and basal inferior lateral abrams were not visualized. All other wall segments showed normal motion. Findings: Study Quality * Technically challenging exam - not all windows are well visualized. ECG Findings * Normal sinus rhythm. Left Ventricle * LVEF 55%. * Normal LV size and wall thickness. * Diastolic function not assessed. Right Ventricle * Normal right ventricular structure and function. Left Atrium * Normal left atrial size. Right Atrium * Normal right atrial size. Aortic Valve * Aortic valve not well visualized. * Suboptimal Doppler interrogation Mitral Valve * Normal mitral valve structure. * Suboptimal Doppler interrogation. Tricuspid Valve * Normal tricuspid valve structure. * Estimated RA pressure is 3 mmHg. Pulmonic Valve * Not well visualized. Aorta * Not well visualized. Pulmonary Artery * Pulmonary artery not well visualized. Pericardium * There is no pericardial effusion present. IVC * Normal IVC dimensions and inspiratory collapse. Interatrial Septum * Interatrial septum not well evaluated.
--- NOTE | 2017-08-24 11:41 | Physician Discharge Referral ---
Home Health/Hosp Referral Info Transfer to: Home Health Provider in Charge Post Discharge: PCP - Diagnosis (1) Ileus following gastrointestinal surgery Priority: Primary Status: Acute (2) Hypokalemia Priority: Secondary Status: Acute (3) Elevated troponin Priority: Secondary Status: Acute (4) Chronic deep vein thrombosis (DVT) of right lower extremity Priority: Secondary Status: Chronic (5) DVT prophylaxis Priority: Secondary Status: Acute - Respiratory Orders Oxygen / L per min (2) Smoking Cessation: Smoking cessation has been advised. For more information, call the [place] [employer] Quit Line at 1-682-ZWIX-NOW. - Diet/Nutrition Diet/Nutrition Orders: Mechanical Soft - Services Needed Following services are medically necessary services: Home Health Aide - Transfer Medications Prescriptions: Aspirin Enteric Coated [Aspirin EC] 81 mg PO DAILY #20 tab Atorvastatin [Lipitor] 40 mg PO HS #20 tablet Metoprolol [Lopressor] 12.5 mg PO BID #40 tablet Rivaroxaban [Xarelto] 1 dose PO AD 30 Days #1 pack Home Medications: ALPRAZolam [Xanax 1 MG Tablet] 1 mg PO BID 08/10/17 [History] Acetaminophen [Tylenol Arthritis] 650 mg PO Q8H PRN 08/10/17 [History] Alendronate Sodium 70 mg PO QWEEK 08/10/17 [History] Duloxetine HCl [Cymbalta] 60 mg PO DAILY 08/10/17 [History] Ezetimibe 10 mg PO DAILY 08/10/17 [History] Folic Acid 1 mg PO DAILY 08/10/17 [History] Furosemide [Lasix] 20 mg PO BID 08/10/17 [History] Levothyroxine Sodium 137 mcg PO 0630 08/10/17 [History] Loratadine [Claritin] 10 mg PO DAILY 08/10/17 [History] Morphine Sulfate SR (12 HR) [MS Contin] 30 mg PO TID 08/10/17 [History] Omeprazole [PriLOSEC] 20 mg PO BID 08/10/17 [History] Oxycodone HCl 10 mg PO QID PRN 08/10/17 [History] Potassium Chloride 10 meq PO BID 08/10/17 [History] Ibuprofen [Motrin] 800 mg PO Q8HR PRN #40 tablet 08/15/17 [Rx] Loperamide [Imodium] 2 mg PO Q2H PRN #60 capsule 08/15/17 [Rx] Psyllium Husk/Aspartame [Metamucil Fiber Singles Packet] 3.4 gm PO DAILY #30 powd.pack 08/15/17 [Rx] Budesonide/Formoterol 160/4.5 [Symbicort 160/4.5] 2 puff IH BIDR 08/19/17 [ History] Docusate [Colace] 100 mg PO TID 08/22/17 [History] Guaifenesin [Mucinex] 600 mg PO BID 08/22/17 [History] Pramipexole Di-HCl [Pramipexole Dihydrochloride] 0.5 mg PO DAILY 08/22/17 [ History] Aspirin Enteric Coated [Aspirin EC] 81 mg PO DAILY #20 tab 08/24/17 [Rx] Atorvastatin [Lipitor] 40 mg PO HS #20 tablet 08/24/17 [Rx] Metoprolol [Lopressor] 12.5 mg PO BID #40 tablet 08/24/17 [Rx] Rivaroxaban [Xarelto] 1 dose PO AD 30 Days #1 pack 08/24/17 [Rx] Allergies/Adverse Reactions: 3 Allergy/AdvReac Type Severity Reaction Status Date / Time baclofen AdvReac Headache Verified 08/10/17 19:26 clonazepam AdvReac See Verified 08/10/17 19:26 Comments Cyclobenzaprine AdvReac Gastrointestinal Verified 08/10/17 19:26 [From Flexeril] Upset gabapentin [From Neurontin] AdvReac Headache Verified 08/10/17 19:26 ibuprofen [From Motrin] AdvReac Chest Pain Verified 08/10/17 19:26 meloxicam [From Mobic] AdvReac See Verified 08/10/17 19:26 Comments methocarbamol AdvReac Gastrointestinal Verified 08/10/17 19:26 Upset methotrexate AdvReac See Verified 08/10/17 19:26 Comments naproxen [From Naprosyn] AdvReac See Verified 08/10/17 19:26 Comments Penicillins AdvReac Vomiting Verified 08/10/17 19:26 pregabalin [From Lyrica] AdvReac Headache Verified 08/10/17 19:26 Sulindac AdvReac Gastrointestinal Verified 08/10/17 19:26 Upset Tizanidine [From Zanaflex] AdvReac Headache Verified 08/10/17 19:26 Certification: Further, I certify that my clinical findings support that this patient is homebound (i.e. absences from home require considerable and taxing effort and are for medical reasons or yazdanism services or infrequently or short duration when for other reasons) because: Homebound Reason: Leaving home requires considerable and taxing effort due to condition Attestation: My signature below is to certify that this patient is under my care and that I, or nurse practitioner, or a physician's assistant manager bilingual working with me, has a face-to -face encounter with this patient.
[2017-08-24] MEDS: Ondansetron 4 MG/2 ML VIAL IVP PRN (14:49)
[2017-08-24] MEDS: *HR* Rivaroxaban 15 MG TABLET PO SCH (18:37)
[2017-08-25] MEDS: *HR* Rivaroxaban 15 MG TABLET PO SCH (06:27)
[2017-08-25] MEDS: Metoclopramide 10 MG/2 ML VIAL IVP SCH (06:27)
[2017-08-25 06:41] VITALS: BP 98/58
[2017-08-25] MEDS: *HR* OxyCODONE Immed Rel 5 MG TABLET PO PRN (06:45)
[2017-08-25] MEDS: ALPRAZolam 0.5 MG TABLET PO SCH (08:50)
[2017-08-25] MEDS: *HR* Morphine Sulfate SR (12 HR) 30 MG TABLET.ER PO SCH (08:51)
[2017-08-25] MEDS: Aspirin Enteric Coated 81 MG Tablet PO SCH (08:52)
--- NOTE | 2017-08-25 11:35 | Event Note ---
Date of Encounter: 08/25/17 Time of Encounter: 11:31 Notified by bedside RN that patient has had 3 liquid, green, clear, stools today. She states the family (patient son specifically) is concerned that the patient may have C. difficile would like her tested before she leaves. I did explain to patient and son that is unlikely given her stool characteristics and lack of associated signs or symptoms; however per his adamant request I will obtain C. difficile study if the patient has another stool. The son also requests a new PCP within [facility]. The community marketing coordinator has placed this referral/made an appointment for a new PCP and follow-up in 2 weeks. Lastly, the sun requests a wheelchair prescription for his mom at home. Given her mobility limitation that impairs her ability to participate in activities of daily living such as toileting and traveling. Given her recent surgical procedures and baseline chronic oxygen use, is unlikely that a cane or walker would be sufficient. We will provide a prescription for a standard manual wheelchair for approximately 3 months, no refills, and to be followed up/ managed by her PCP. Ada is okay to discharge as previously ordered. Follow up with Nohemy Zheng in the office on 08/15/2017 at 10:15 AM. - Patient Status Disposition: Home, Self-Care Condition: Fair - Discharge Instructions Follow Up With: Jose Luis Dunaway CNP [Family Provider] - 08/30/17 1:15 pm Vannessa London CNP [Advanced Practice Nurse] - (office will call patient at home with appointment date and time) Nohemy Brown CNP [Advanced Practice Nurse] - 09/15/17 10:15 am () Additional Instructions: 1. No pushing, pulling, or lifting greater than 15 lbs for four weeks. 2. You may shower beginning today, but no tub baths, soaking, or swimming for 2 weeks. 3. Take ibuprofen every 8 hours if needed for discomfort. If this does not relieve the discomfort you may take oxycodone. 4. Take narcotics as directed. Do not take more narcotics then directed and do not share your narcotics with any other person. Do not drink alcohol while on narcotics. 5. Take stool softeners (Colace) or a water based laxative (Miralax) while taking narcotics. You may hold for loose stools. 6. Report any fevers greater than 100.5F, increase abdominal discomfort, drainage that looks like pus, increased redness or pain at the surgical site, or any vomiting. 7. Report any pain in the calves, shortness of breath, or rapid heartbeat. 8. Follow-up in the office as directed. 9. If you were prescribed antibiotics, do not stop them without talking to your provider
[2017-08-25] MEDS: Ondansetron 4 MG/2 ML VIAL IVP PRN (14:06)
== END 2017-08-25 16:45 | disposition home or self-care (01) | DRG 394 ==
LOC: 3ANU 07:30 → 2NENU 10:26
PROVIDERS: ADMIT Surgery; ATTEND Surgery